=== PATIENT | female | born 1975 | race Caucasian/White ===

== ENCOUNTER → 2020-05-08 08:21 | Outpatient (BNVA) | payer OTHER, SELFPAY | PROVIDERS: PCP Internal Medicine; Referring Provider Internal Medicine; Visit Provider Internal Medicine Gastroenterology | DX: Z76.89 Persons encountering health services in other specified circumstances (principal) ==

== ENCOUNTER 2020-05-12 12:03 | Outpatient (REF) | payer OTHER, SELFPAY ==
--- NOTE | 2020-05-12 12:13 | US_ITS ---
EXAMINATION: LEFT UPPER EXTREMITY VENOUS ULTRASOUND CLINICAL INFORMATION: SWELLING. HISTORY OF DVT. COMPARISON: None TECHNIQUE: Doppler, color and grayscale evaluation of the veins of the left upper extremity FINDINGS: The left internal jugular, subclavian, axillary, brachial, basilic, and cephalic veins and radial and ulnar veins in the forearm are patent. The cephalic vein appears small. There is no evidence of DVT. US/US venous duplex UE LT IMPRESSION: No evidence of DVT.
== END 2020-05-12 12:04 | disposition home or self-care (01) ==
LOC: HO.HMGCX 12:03
PROVIDERS: PCP Internal Medicine; Visit Provider Hospitalist
DX: M79.89 Other specified soft tissue disorders (principal)
CPT/HCPCS: 93971

== ENCOUNTER 2020-06-13 07:53 | Outpatient (REF) | payer OTHER, SELFPAY | END 2020-06-13 07:54 | disposition home or self-care (01) | LOC: HO.MDS 07:53 | PROVIDERS: PCP Internal Medicine; Visit Provider Internal Medicine | DX: D50.9 Iron deficiency anemia, unspecified (principal) | CPT/HCPCS: 96365; 96366; J1200; J1750; Q0163 ==

== ENCOUNTER 2020-06-20 08:52 | Day surgery (SDC) | payer OTHER, SELFPAY ==
[2020-06-12 13:39] VITALS: BMI 47.4
--- NOTE | 2020-06-19 09:07 | HO.ANESPROP2 ---
Documented by User: Susana Gold 06/19/20 09:09 HPI - Anesthesia Eval Consult details Narrative: 45yo [facility] Past Medical History Medical History Anxiety Asthma Deep vein thrombosis (DVT) of left upper extremity Depression Eczema Elevated C-reactive protein (CRP) Family hx colonic polyps History of hysteroscopy Iron deficiency anemia Kidney stone Low vitamin D level Osteoarthritis of knees, bilateral Polyarthralgia Polycystic disease, ovaries Psoriasis Family History Family History Paternal Grandfather FH: esophageal cancer Najera esophagus Father Najera esophagus Mother Colon polyps Sister No problems noted. Surgical History Surgical History History of arthroscopy of right knee History of cholecystectomy Hx of tonsillectomy Social History Social History Household Members: Spouse and Children Housing: House Are you a primary progressive care unit registered nurse to a significant other at home: No Do you presently have visiting nurse or other home services: No Alcohol intake: current Alcohol intake frequency: holidays/special occasions only Alcohol type: wine Smoking Status: Never smoker Use of substances other than those prescribed or required for medical reasons: No Advance Directives: No Advance Directives Information Provided: Yes Advance Directives on File: No Recently lost weight without trying: No Meds Allergies Allergy/AdvReac Type Severity Reaction Status Date / Time apixaban Allergy Intermediate Rash Verified 06/12/20 13:35 promethazine [Phenergan] Allergy Intermediate Itching Verified 06/12/20 13:35 Home Medications Medication Instructions Recorded Confirmed Type albuterol 90 mcg INHALATION Q4-5H PRN 03/29/20 05/29/20 History sumatriptan succinate [Imitrex] 100 mg PO BID PRN 03/29/20 05/29/20 History Exam Exam Date and Time: June 19, 2020 0907 Height,Weight and Vital Signs: Height 5 ft 8 in Weight 141.521 kg Pertinent Lab Results Pertinent Lab Results: Laboratory Tests 02/04/20 05/29/20 08:42 08:23 WBC 5.4 Hgb 10.8 L Hct 37.3 Plt Count 277 Sodium 137 Potassium 3.4 Chloride 96 BUN 11 Creatinine 0.58 Assessment and Plan Assessment Anesthesia Assessment: Chart Reviewed Documented by User: Giselle Hoyos 06/20/20 11:52 PMFSH Past Medical History Medical History Anxiety Asthma Deep vein thrombosis (DVT) of left upper extremity Depression Eczema Elevated C-reactive protein (CRP) Family hx colonic polyps History of hysteroscopy Iron deficiency anemia Kidney stone Low vitamin D level Osteoarthritis of knees, bilateral Polyarthralgia Polycystic disease, ovaries Psoriasis Family History Family History Paternal Grandfather FH: esophageal cancer Najera esophagus Father Najera esophagus Mother Colon polyps Sister No problems noted. Surgical History Surgical History History of arthroscopy of right knee History of cholecystectomy Hx of tonsillectomy Social History Social History Household Members: Spouse and Children Housing: House Are you a primary progressive care unit registered nurse to a significant other at home: No Do you presently have visiting nurse or other home services: No Alcohol intake: current Alcohol intake frequency: holidays/special occasions only Alcohol type: wine Smoking Status: Never smoker Use of substances other than those prescribed or required for medical reasons: No Advance Directives: No Advance Directives Information Provided: Yes Advance Directives on File: No Recently lost weight without trying: No Meds Allergies Allergy/AdvReac Type Severity Reaction Status Date / Time apixaban Allergy Intermediate Rash Verified 06/12/20 13:35 promethazine [Phenergan] Allergy Intermediate Itching Verified 06/12/20 13:35 Home Medications Medication Instructions Recorded Confirmed Type albuterol 90 mcg INHALATION Q4-5H PRN 03/29/20 05/29/20 History sumatriptan succinate [Imitrex] 100 mg PO BID PRN 03/29/20 05/29/20 History Exam Airway Mallampati Class: II TM Dist: >3cm Neck ROM: Full Assessment and Plan Assessment Anesthesia Assessment: Anesthesia Plan Discussed and Chart Reviewed Final Anesthetic Review NPO: Yes ASA Class: III Final Preanesthetic Review: No Changes in Pt Med Stat, Meds/Allgs Chart Reviewed, Consent Obtained/Reviewed and Anes Risks/Benef Reviewed Patient Risk: Intermediate Procedure Risk: Low Assessment/Block/Sedation in SS: Assess/Block/Sedation-SS Anesthetic Plan Anesthetic Plan: MAC: Disposition: Standard PACU
[2020-06-20 10:27] VITALS: BP 138/83; PULSE 90; RESP 18; TEMP 36.5; O2SAT 96
[2020-06-20] MEDS: Lactated Ringers 1,000 ML 100 ML IVCONT (10:43)
--- NOTE | 2020-06-20 11:55 | PC.NURSE ---
per dr chavarria, no urine for hcg wanted prior to procedure due to iud in place.
--- NOTE | 2020-06-20 11:58 | MHC.SHP ---
Pre-Procedural Eval Section B Chief Complaint: iron def,screening Details of Present Illness: No clinical changes, Family hx polyps--Mother and father no menorrhagia Recent iron infusion--feels better. Relevant Family History (Specify if Yes): Yes Relevant Social History: None Present Medications: see Short Stay Collaborative assessment Medical History: Significant History (Asthma, iron deficiency anemia, psoriasis) History of Previous Operations: Relevant previous surgery/procedure and date(s) (cholecystectomy) Allergies: Allergies Allergy/AdvReac Type Severity Reaction Status Date / Time apixaban Allergy Intermediate Rash Verified 06/12/20 13:35 promethazine [Phenergan] Allergy Intermediate Itching Verified 06/12/20 13:35 Review of Systems Sugical H&P ROS: Negative: Constitution, Cardiovascular, Respiratory, Neurological, Psychiatric, Hem-Onc, Allergic/Immunologic, Gastrointestinal and Musculoskeletal Exam Surgical H&P Exam: Normal: HEENT, Normal: Heart, Normal: Lungs and Normal: Extremities and Significant Findings: Abdomen (obesity) Exam Comment: BMI-47 Plan Diagnosis/Plan: Unchanged I have reviewed the history and physical and performed a pertinent physical examination on my patient. No changes have occurred unless specified.yes
--- NOTE | 2020-06-20 12:06 | PM.HPGS ---
History of Present Illness History of Present Illness Date of Service: 06/20/20 Chief complaint: iron def,screening Narrative: Jennifer Delaney is a 45 [facility] Past Medical History Medical History Anxiety Asthma Deep vein thrombosis (DVT) of left upper extremity Depression Eczema Elevated C-reactive protein (CRP) Family hx colonic polyps History of hysteroscopy Iron deficiency anemia Kidney stone Low vitamin D level Osteoarthritis of knees, bilateral Polyarthralgia Polycystic disease, ovaries Psoriasis Family History Family History Paternal Grandfather FH: esophageal cancer Najera esophagus Father Najera esophagus Mother Colon polyps Sister No problems noted. Surgical History Surgical History History of arthroscopy of right knee History of cholecystectomy Hx of tonsillectomy Social History Social History Household Members: Spouse and Children Housing: House Are you a primary healthcare applications analyst to a significant other at home: No Do you presently have visiting nurse or other home services: No Alcohol intake: current Alcohol intake frequency: holidays/special occasions only Alcohol type: wine Smoking Status: Never smoker Use of substances other than those prescribed or required for medical reasons: No Advance Directives: No Advance Directives Information Provided: Yes Advance Directives on File: No Recently lost weight without trying: No Meds Allergies Allergy/AdvReac Type Severity Reaction Status Date / Time apixaban Allergy Intermediate Rash Verified 06/12/20 13:35 promethazine [Phenergan] Allergy Intermediate Itching Verified 06/12/20 13:35 Home Medications Medication Instructions Recorded Confirmed Type albuterol 90 mcg INHALATION Q4-5H PRN 03/29/20 05/29/20 History sumatriptan succinate [Imitrex] 100 mg PO BID PRN 03/29/20 05/29/20 History Physical Exam Vital Signs: Vital Signs: Last Vital Signs Temp 97.7 F 06/20/20 10:27 Pulse 90 06/20/20 10:27 Resp 18 06/20/20 10:27 BP 138/83 06/20/20 10:27 Pulse Ox 96 06/20/20 10:27 Body Mass Index 47.4
--- NOTE | 2020-06-20 12:13 | P.CONAN_ITS ---
[facility] Past Medical History Medical History Anxiety Asthma Deep vein thrombosis (DVT) of left upper extremity Depression Eczema Elevated C-reactive protein (CRP) Family hx colonic polyps History of hysteroscopy Iron deficiency anemia Kidney stone Low vitamin D level Osteoarthritis of knees, bilateral Polyarthralgia Polycystic disease, ovaries Psoriasis Family History Family History Paternal Grandfather FH: esophageal cancer Najera esophagus Father Najera esophagus Mother Colon polyps Sister No problems noted. Surgical History Surgical History History of arthroscopy of right knee History of cholecystectomy Hx of tonsillectomy Social History Social History Household Members: Spouse and Children Housing: House Are you a primary ambulatory care to a significant other at home: No Do you presently have visiting nurse or other home services: No Alcohol intake: current Alcohol intake frequency: holidays/special occasions only Alcohol type: wine Smoking Status: Never smoker Use of substances other than those prescribed or required for medical reasons: No Advance Directives: No Advance Directives Information Provided: Yes Advance Directives on File: No Recently lost weight without trying: No Meds Allergies Allergy/AdvReac Type Severity Reaction Status Date / Time apixaban Allergy Intermediate Rash Verified 06/12/20 13:35 promethazine [Phenergan] Allergy Intermediate Itching Verified 06/12/20 13:35 Home Medications Medication Instructions Recorded Confirmed Type albuterol 90 mcg INHALATION Q4-5H PRN 03/29/20 05/29/20 History sumatriptan succinate [Imitrex] 100 mg PO BID PRN 03/29/20 05/29/20 History Exam Exam Date and Time: June 20, 2020 1213 Height,Weight and Vital Signs: Height 5 ft 8 in Weight 141.521 kg Last Vital Signs Temp 97.7 F 06/20/20 10:27 Pulse 90 06/20/20 10:27 Resp 18 06/20/20 10:27 BP 138/83 06/20/20 10:27 Pulse Ox 96 06/20/20 10:27 Airway Mallampati Class: II TM Dist: >3cm Neck ROM: Full Assessment and Plan Assessment Anesthesia Assessment: Anesthesia Plan Discussed and Chart Reviewed Final Anesthetic Review NPO: Yes ASA Class: III Final Preanesthetic Review: No Changes in Pt Med Stat, Meds/Allgs Chart Reviewed, Consent Obtained/Reviewed and Anes Risks/Benef Reviewed Patient Risk: Intermediate Procedure Risk: Low Assessment/Block/Sedation in SS: Assess/Block/Sedation-SS Anesthetic Plan Anesthetic Plan: MAC:
[2020-06-20 12:55] VITALS: BP 121/67; PULSE 79; RESP 16; TEMP 36.7; O2SAT 95
--- NOTE | 2020-06-20 12:56 | PCN2_ITS ---
Brief Operative Note Date of procedure: 06/20/20 Pre-op diagnosis: Iron deficiency anemia, colon cancer screening (Family hx of polyps) Post-op diagnosis: other (EGD: Small HH. Erosive antral Gastrtitis, [place]--neg--redundant) Procedure: EGD w/ BX; colo no intervention Anesthesia: MAC (Isaiah Fischer MD) Surgeon: Mikki Tello Estimated blood loss (mL): 0 Pathology: other (Duodenal, random gastric, colon--no spec.) Condition: stable Disposition: PACU
[2020-06-20 13:08] VITALS: BP 135/78; PULSE 73; RESP 16; TEMP 36.7; O2SAT 97
--- NOTE | 2020-06-20 13:43 | HO.POSTANES ---
Post Anesthesia Evaluation Post Anesthesia Evaluation Vital Signs: Vital Signs Temp Pulse Resp BP Pulse Ox 06/20/20 13:08 98.0 F 73 16 135/78 97 06/20/20 12:55 98.0 F 79 16 121/67 95 06/20/20 10:27 97.7 F 90 18 138/83 96 Anesthesia: Monitored Mental Status: Awake Pain Control: Satisfactory Nausea/Vomiting: None Hydration: Adequate Anesthesia-Related Issues: No Anes. Related Issues
--- NOTE | 2020-06-20 14:42 | OP_ITS ---
SURGEON: Mikki Tello MD PREOPERATIVE DIAGNOSIS: POSTOPERATIVE DIAGNOSIS: PROCEDURE PERFORMED: EGD with biopsy, colonoscopy. ESTIMATED BLOOD LOSS: Minimal, less than 5 mL. COMPLICATIONS: No complications. ANESTHESIA: Monitored. ANESTHESIOLOGIST: Dr. Hoyos ASSISTANTS: No talent assistant. SPECIMENS: Specimens removed; EGD, duodenal, gastric. Colonoscopy, no specimens. PREOPERATIVE DIAGNOSES: The patient is a 45-year-old female, who was referred by her primary and Hematology due to significant iron-deficiency anemia. She has had no significant menstrual bleeding since placement of IUD 10 years ago. Recently, she has been given an iron infusion. She says she feels more energy since that time. She does also give a history in her on both sides of her family of colonic polyps. POSTOPERATIVE DIAGNOSES: EGD; hiatal hernia, small antral gastritis with some associated erosions. Colonoscopy; clear to the level of the cecum. [place] UNDERWRITER: Dr. Tello. CONDITION: Postprocedure, stable. FINDINGS: Video endoscope was introduced without difficulty. It was navigated into posterior pharynx and into the esophagus. Esophageal mucosa was normal. GE junction was clear and distinct. Distal to this, was a small hiatal hernia. On entering the stomach, the fundus and body appeared normal. There was still a radiating linear folds in the antrum from the pylorus with some associated erosive change. Duodenal bulb and duodenum appeared endoscopically normal although there was a question of foreshortening of the villi. Duodenal biopsies were obtained. Gastric biopsies were obtained. COLONOSCOPY FINDINGS: Digital rectal exam revealed no specific lesion. Video colonoscope was introduced without difficulty. It was navigated into the rectosigmoid area. There was a lot of retained fluid from the prep with a very blue chartreuse type coloration making some of the landmark distinctions difficult. Scope slowly advanced through descending, transverse, ascending colon into the cecum. Appendiceal orifice was seen. Ileocecal valve was seen. Distention despite the use of air insufflation was somewhat marginal in different areas. Slow rotational views. Multiple areas were flushed. No polyps were identified. Anorectal verge was clear. PLAN: I would do FIT testing in this patient in 3 to 4 months. If this is negative, consider colon cancer screening with a 2-day prep in 3 years due to significant family history and some variability of the prep that we had encountered. She is to followup by Televisit in next 2-4 weeks. (May have already been scheduled.) GRAFT OR IMPLANTS: No grafts or implants. MD GAL Phipps/AZAEL / [id number] MTDD
== END 2020-06-20 13:36 | disposition home or self-care (01) ==
PROVIDERS: PCP Internal Medicine; Visit Provider Internal Medicine Gastroenterology
PROC: (CPT 45378; principal; 2020-06-20 11:20)
DX: D50.9 Iron deficiency anemia, unspecified (principal); Z83.71 Family history of colonic polyps; K29.50 Unspecified chronic gastritis without bleeding; K44.9 Diaphragmatic hernia without obstruction or gangrene; K31.89 Other diseases of stomach and duodenum; J45.909 Unspecified asthma, uncomplicated; M17.0 Bilateral primary osteoarthritis of knee; Z88.8 Allergy status to other drugs, medicaments and biological substances; Z90.49 Acquired absence of other specified parts of digestive tract; Z79.899 Other long term (current) drug therapy
CPT/HCPCS: 45378; 43239; 88305; 88342; J2405; J3010

== ENCOUNTER 2021-02-22 07:57 | Outpatient (REF) | payer OTHER, SELFPAY ==
[2021-02-22 09:35] LABS: Alanine Aminotransferase 14 U/L (0-31); Albumin Level 3.7 g/dL (3.5-5.0); Alkaline Phosphatase 93 U/L (39-117); Anion Gap 13 (12-20); Aspartate Amino Transferase 11 U/L (5-31); Bilirubin Total 0.3 mg/dL (0.0-1.0); Blood Urea Nitrogen 9 mg/dL (9-16); Calcium 8.7 mg/dL (8.4-10.2); Carbon Dioxide 30 mmol/L (22-29); Chloride 103 mmol/L (96-108); Estimated Glomerular Filt Rate > 60; Glucose Random 159 mg/dL (60-115); Potassium 3.8 mmol/L (3.3-5.1); Sodium 142 mmol/L (135-145); Total Protein 6.3 g/dL (6.5-8.0)
== END 2021-02-22 07:58 | disposition home or self-care (01) ==
LOC: HO.LAB 07:57
PROVIDERS: PCP Internal Medicine; Referring Provider Internal Medicine; Visit Provider Nurse Practitioner Family
DX: M79.7 Fibromyalgia (principal); R79.82 Elevated C-reactive protein (CRP); D50.9 Iron deficiency anemia, unspecified
CPT/HCPCS: 36415; 80053

== ENCOUNTER 2021-07-24 11:24 | Outpatient (REF) | payer OTHER, SELFPAY ==
[2021-07-24 11:54] LABS: Binax Internal Control QC Valid; Binax Now Covid-19 Ag Negative (Negative); Binax Performed by: HO.BONILM
== END 2021-07-24 11:25 | disposition home or self-care (01) ==
LOC: HO.HMGCLDS 11:24
PROVIDERS: PCP Internal Medicine; Visit Provider Physician Assistant
DX: Z20.822 Contact with and (suspected) exposure to COVID-19 (principal)
CPT/HCPCS: 0241U; U0003; U0005

== ENCOUNTER 2022-03-19 07:19 | Outpatient (REF) | payer OTHER, SELFPAY ==
[2022-03-19 11:22] LABS: Appearance Urine Cloudy; Color Urine Yellow; Glucose Urine UA Negative (Negative); Leukocyte Esterase Urine Negative (Negative); Nitrite Urine Negative (Negative); PH 7.5 (5.0-9.0); Specific Gravity - Urine 1.025 (1.005-1.025); Urine Blood Negative (Negative); Urine Ketones Negative (Negative); Urine Protein Negative (Neg-Trace)
[2022-03-19 11:27] LABS: Bacteria Urine None Seen (None Seen); Hyaline Casts Urine 0-2 /LPF (0-2); Squamous Epithelial Cell Urine 0-2 /HPF (0-2); WBC Urine 0-5 /HPF (0-5)
[2022-03-19 11:40] LABS: Hematocrit 38.1 % (37.0-47.0); Hemoglobin 11.4 g/dl (12.0-16.0); Mean Corpuscular HGB Conc 29.9 g/dl (31.0-35.0); Mean Corpuscular Hemoglobin 24.1 pg (27.0-33.0); Mean Corpuscular Volume 80.4 fL (80.0-98.0); Mean Platelet Volume 9.6 fL (9.4-12.3); Platelet Count 244 X10*3/uL (160-400); Red Blood Count 4.74 X10*6/uL (4.20-5.50); Red Cell Distribution Width 15.2 % (11.0-16.0)
[2022-03-19 12:24] LABS: Alanine Aminotransferase 15 U/L (0-31); Albumin Level 3.7 g/dL (3.5-5.0); Alkaline Phosphatase 86 U/L (39-117); Anion Gap 18 (12-20); Aspartate Amino Transferase 14 U/L (5-31); Bilirubin Total 0.6 mg/dL (0.0-1.0); Blood Urea Nitrogen 10 mg/dL (9-16); Calcium 8.5 mg/dL (8.4-10.2); Carbon Dioxide 29 mmol/L (22-29); Chloride 97 mmol/L (96-108); Cholesterol 215 mg/dL; Estimated Glomerular Filt Rate > 60; Glucose Fasting 133 mg/dL (60-99); HDL Cholesterol 52 mg/dL; Iron 40 mcg/dL (30-160); LDL Cholesterol Calculated 131 mg/dl; Percent Iron Saturation 12 % (15-50); Potassium 3.5 mmol/L (3.3-5.1); Sodium 140 mmol/L (135-145); TSH reflex Free T4 1.24 uIU/mL (0.32-4.0); Total Iron Binding Capacity 327 mcg/dL (228-428); Total Protein 6.5 g/dL (6.5-8.0); Triglycerides 161 mg/dL; Unsaturated Iron Binding 287 ug/dL
== END 2022-03-19 07:20 | disposition home or self-care (01) ==
LOC: HO.HMGCLDS 07:19
PROVIDERS: PCP Internal Medicine; Visit Provider Internal Medicine
DX: Z00.00 Encounter for general adult medical examination without abnormal findings (principal); D50.9 Iron deficiency anemia, unspecified
CPT/HCPCS: 36415; 80053; 80061; 81001; 82306; 83540; 84443; 85027

== ENCOUNTER 2022-04-18 14:01 | Outpatient (REF) | payer OTHER, SELFPAY ==
--- NOTE | ~2022-04-18 | XR_ITS ---
EXAMINATION: XR SINUSES CLINICAL INFORMATION: Chronic sinusitis COMPARISON: None TECHNIQUE: 3 views of the sinuses were obtained. FINDINGS: Paranasal sinuses appear clear without soft tissue opacification or air-fluid level. No fracture or dislocation. Bony structures are normal. XR/XR sinus min 3V IMPRESSION: Clear paranasal sinuses.
== END 2022-04-18 14:02 | disposition home or self-care (01) ==
LOC: HO.HMGCX 14:01
PROVIDERS: PCP Internal Medicine; Visit Provider Internal Medicine
DX: J32.9 Chronic sinusitis, unspecified (principal)
CPT/HCPCS: 70220

== ENCOUNTER 2023-01-02 10:08 | Outpatient (AMB) | payer OTHER, SELFPAY ==
[2023-01-02 10:13] VITALS: BP 126/80; PULSE 82; O2SAT 97; BMI 48.0
--- NOTE | 2023-01-02 10:13 | MHC.PC.OV ---
Vital Signs 01/02/23 10:13 Height 5 ft 8 in Weight 316 lb BMI 48.0 BP 126/80 Blood Pressure Location Lt brachial Position Sitting Pulse 82 Pulse Source Pulse Oximeter Pulse Oximetry (%) 97 Oxygen Delivery Method Room Air Intake Visit Reasons: Follow up from physical Intake Note: Pt is here today for a follow up visit. Allergies amoxicillin Allergy (Intermediate, Verified 01/02/23 10:15) Rash apixaban Allergy (Intermediate, Verified 01/02/23 10:15) Rash promethazine [Phenergan] Allergy (Intermediate, Verified 01/02/23 10:15) Itching Tobacco use date assessed: 01/02/23 Dental Screening Dental Screen Date: 01/02/23 Did you have a dental visit in the last 12 months?: Yes Did you have a dental problem in the last 6 months where you did not have access to dental care?: No Was dental information given to patient?: Patient has dentist HPI Follow up from physical HPI Details Pt presents for f/u. For recurrent nephrolithiasis and will have a surgery next week by Dr. Ashford. Pt f/u with neurology for migraine AQUINO botox inj. PFSH Medical History (Updated 01/02/23 @ 10:56 by Haley El MD) Annual physical exam Anxiety Asthma Deep vein thrombosis (DVT) of left upper extremity Depression Eczema Elevated C-reactive protein (CRP) Family hx colonic polyps Iron deficiency anemia Kidney stone Low vitamin D level Migraine Osteoarthritis of knees, bilateral Polyarthralgia Polycystic disease, ovaries Psoriasis Surgical History History of arthroscopy of right knee History of cholecystectomy History of hysteroscopy Hx of tonsillectomy Family History Paternal Grandfather FH: esophageal cancer Najera esophagus Father Najera esophagus Mother Colon polyps Sister No problems noted. Social History Household Members: Spouse and Children Housing: House Are you a primary out of school hours care worker to a significant other at home: No Do you presently have visiting nurse or other home services: No Alcohol intake: current Alcohol intake frequency: holidays/special occasions only Alcohol type: wine Patient Tobacco Use Status: Never used Tobacco e-Cigarette/Vaping Use: Never Used Substance Use Type: Marijuana Current occupational status: employed Cognitive needs: No Hearing needs: No Vision needs: No Questionnaire PHQ-9 Over the last 2 weeks, how often have you been bothered by any of the following problems? 1. Little interest or pleasure in doing things: several days 2. Feeling down, depressed, or hopeless: several days 3. Trouble falling or staying asleep, or sleeping too much: more than half the days 4. Feeling tired or having little energy: several days 5. Poor appetite or overeating: several days 6. Feeling bad about yourself - or that you are a failure or have let yourself or your family down: not at all 7. Trouble concentrating on things, such as reading the newspaper or watching television: not at all 8. Moving or speaking so slowly that other people could have noticed. Or the opposite - being so fidgety or restless that you have been moving around a lot more than usual: not at all 9. Thoughts that you would be better off or of hurting yourself in some way: not at all Total score: 6 Depression Screening Interpretation: Negative Source: Developed by Drs. Livan Lima, Monica Castellano, Edward Draper and colleagues, with an educational gilbert from [employer]. Thrive Questionnaire Date Thrive assessed: 01/02/23 I am a: Patient What is your living situation today?: I have a steady place to live Within the past 12 months, did the food you bought not last and you didn't have the money to get more?: Never true Within the past 12 months, did you worry whether your food would run out before you got money to buy more?: Never true Do you have trouble paying for medicines?: No Do you have trouble getting transportation to medical appointments?: No Do you have trouble paying your heating and electricity bill?: No Do you have trouble taking care of your child, family member or friend?: No Do you have trouble with day-to-day activities such as bathing, preparing meals, shopping, managing finances, etc.?: No Are you currently unemployed and looking for a job?: No Are you interested in more education?: No Please select the resources that you would like help with: None AUDIT C Alcohol Use Questionnaire (AUDIT-C) 1. How often do you have a drink containing alcohol?: Monthly or less 2. How many drinks containing alcohol do you have on a typical day when you are drinking?: 1 or 2 3. How often do you have six or more drinks on one occasion?: Never Total Score: 1 SHELBIE-7 AMB Questionnaire SHELBIE-7 Date SHELBIE - 7 assessed: 03/27/22 Feeling nervous, anxious, or on edge: 2 = More than half the days Not being able to stop or control worryin = Several days Worrying too much about different things: 1 = Several days Trouble relaxin = Several days Being so restless that it is hard to sit still: 1 = Several days Becoming easily annoyed or irritable: 1 = Several days Feeling afraid as if something awful might happen: 1 = Several days Total SHELBIE-7 score (0-4 normal; 5-9 mild; 10-14 moderate; 15-21 severe): 8 Source: Developed by Drs. Livan Lima, Monica Castellano, Edward Draper and colleagues, with an educational gilbert from [employer]. Review of Systems Const All systems reviewed & are unremarkable except as noted in HPI and below Reports no additional complaints Eyes Reports no additional complaints ENT Reports no additional complaints Card Reports no additional complaints Resp Reports no additional complaints GI Reports no additional complaints Physical exam (Primary Care) Vital Signs: Last Vital Signs Pulse 82 01/02/23 10:13 BP 126/80 01/02/23 10:13 Pulse Ox 97 01/02/23 10:13 Oxygen Delivery Method Room Air 01/02/23 10:13 BMI result Body Mass Index 48.0 Tobacco/Smoking Status: Tobacco use Status Tobacco use date assessed 01/02/23 01/02/23 10:19 Patient Tobacco Use Status Never used Tobacco 01/02/23 10:19 e-Cigarette/Vaping Use Never Used 01/02/23 10:19 PHQ-9: PHQ-9 Score PHQ-9: Total score 6 01/02/23 10:19 Depression Screening Interpretation: Negative Thrive Assessment: Date of Thrive Assessment Date Thrive assessed 01/02/23 01/02/23 10:19 Const General: no acute distress HENMT Ears: hearing grossly normal bilaterally Face and sinus: Yes normal facial exam Neck Neck: Yes no lymphadenopathy and Yes supple Resp Effort & Inspection: normal respiratory effort Auscultation: clear to auscultation bilaterally Cardio Rhythm: regular rhythm Heart sounds: S1 normal heart sound present and S2 normal heart sound present GI Inspection: Yes normal to inspection Palpation (GI): Soft to palpation Percussion: Yes normal to percussion Assessment and Plan Assessment & Plan (1) Vitamin D deficiency: Code(s): E55.9 - Vitamin D deficiency, unspecified Plan: cont vit D (2) Hyperglycemia: Code(s): R73.9 - Hyperglycemia, unspecified Plan: check A1C, cont ADA diet (3) Annual physical exam: Code(s): Z00.00 - Encounter for general adult medical examination without abnormal findings Plan: well balanced diet, regular exercise (4) Low vitamin D level: Code(s): R79.89 - Other specified abnormal findings of blood chemistry (5) Kidney stone: Comment: recurrent R kidney f/u PVU Code(s): N20.0 - Calculus of kidney Orders: Orders Comprehensive [place]. Panel Fast Today E55.9 - Vitamin D deficiency, unspecified, R73.9 - Hyperglycemia, unspecified, R79.89 - Other specified abnormal findings of blood chemistry, Z00.00 - Encounter for general adult medical examination without abnormal findings Hemoglobin A1c Today E55.9 - Vitamin D deficiency, unspecified, R73.9 - Hyperglycemia, unspecified, R79.89 - Other specified abnormal findings of blood chemistry, Z00.00 - Encounter for general adult medical examination without abnormal findings Lipid Panel Today E55.9 - Vitamin D deficiency, unspecified, R73.9 - Hyperglycemia, unspecified, R79.89 - Other specified abnormal findings of blood chemistry, Z00.00 - Encounter for general adult medical examination without abnormal findings PTHI Today E55.9 - Vitamin D deficiency, unspecified, R73.9 - Hyperglycemia, unspecified, R79.89 - Other specified abnormal findings of blood chemistry, Z00.00 - Encounter for general adult medical examination without abnormal findings Microalbumin, Random (w Creat) Today E55.9 - Vitamin D deficiency, unspecified, R73.9 - Hyperglycemia, unspecified, R79.89 - Other specified abnormal findings of blood chemistry, Z00.00 - Encounter for general adult medical examination without abnormal findings Complete Blood Count Auto Diff Today E55.9 - Vitamin D deficiency, unspecified, R73.9 - Hyperglycemia, unspecified, R79.89 - Other specified abnormal findings of blood chemistry, Z00.00 - Encounter for general adult medical examination without abnormal findings Vitamin D 25-OH Total Today R79.89 - Other specified abnormal findings of blood chemistry Coding Level of Care Code Est Pt Level 4 (62188) Diagnoses Vitamin D deficiency E55.9 Hyperglycemia R73.9 Annual physical exam Z00.00 Low vitamin D level R79.89 Kidney stone N20.0
== END 2023-01-02 10:47 | disposition home or self-care (01) ==
PROVIDERS: PCP Internal Medicine; Visit Provider Internal Medicine
DX: E55.9 Vitamin D deficiency, unspecified (principal); R73.9 Hyperglycemia, unspecified; N20.0 Calculus of kidney
CPT/HCPCS: 99214

== ENCOUNTER 2023-07-21 12:21 | Outpatient (REF) | payer OTHER, SELFPAY | END 2023-07-21 12:22 | disposition home or self-care (01) | LOC: HO.MAMMO 12:21 | PROVIDERS: PCP Internal Medicine; Visit Provider Internal Medicine | DX: Z12.31 Encounter for screening mammogram for malignant neoplasm of breast (principal) | CPT/HCPCS: 77063; 77067 ==

== ENCOUNTER → 2023-07-21 12:30 | Outpatient (BNV) | payer OTHER, SELFPAY | PROVIDERS: PCP Internal Medicine; Visit Provider Radiology Diagnostic Radiology | DX: Z12.31 Encounter for screening mammogram for malignant neoplasm of breast (principal) | CPT/HCPCS: 77063; 77067 ==

== ENCOUNTER 2023-10-02 08:07 | Outpatient (REF) | payer OTHER, SELFPAY ==
[2023-10-02 10:20] LABS: MANUAL DIFF FLAG NO
[2023-10-02 10:35] LABS: Basophils Percent Auto 0.3 % (0-2); Eosinophils Percent Auto 0.6 % (0-4); Hematocrit 38.8 % (37.0-47.0); Hemoglobin 11.4 g/dl (12.0-16.0); Imm Gran Abs Auto 0.02 X10*3/uL (0.00-0.03); Imm Gran Pct Auto 0.3 % (0.0-0.4); Lymphocytes Absolute Auto 1.3 X10*3/uL (1.2-4.9); Lymphocytes Percent Auto 18.6 % (20-40); Mean Corpuscular HGB Conc 29.4 g/dl (31.0-35.0); Mean Corpuscular Hemoglobin 22.7 pg (27.0-33.0); Mean Corpuscular Volume 77.1 fL (80.0-98.0); Mean Platelet Volume 9.6 fL (9.4-12.3); Monocytes Absolute Auto 0.3 X10*3/uL (0.1-1.2); Monocytes Percent Auto 4.3 % (2-11); Neutrophils Absolute Auto 5.3 x10*3/uL (2.0-8.3); Neutrophils Percent Auto 75.9 % (45-73); Platelet Count 278 X10*3/uL (160-400); Red Blood Count 5.03 X10*6/uL (4.20-5.50); Red Cell Distribution Width 16.2 % (11.0-16.0); White Blood Count 6.9 X10*3/uL (4.8-10.8)
[2023-10-02 10:52] LABS: Estimated Average Glucose 151 mg/dL; Hemoglobin A1c % 6.9 % (<6.0)
[2023-10-02 11:32] LABS: Creatinine Urine 128.83 mg/dL; Microalbum/Creatinine Ratio Ur 7.7 ug/mg cr (<30)
[2023-10-02 11:47] LABS: Alanine Aminotransferase 18 U/L (0-31); Albumin Level 3.8 g/dL (3.5-5.0); Alkaline Phosphatase 81 U/L (39-117); Anion Gap 11 (12-20); Aspartate Amino Transferase 14 U/L (5-31); Bilirubin Total 0.5 mg/dL (0.0-1.0); Blood Urea Nitrogen 9 mg/dL (9-16); Calcium 9.3 mg/dL (8.4-10.2); Carbon Dioxide 32 mmol/L (22-29); Chloride 99 mmol/L (96-108); Cholesterol 193 mg/dL (<200); Estimated Glomerular Filt Rate > 60; Glucose Fasting 122 mg/dL (60-99); HDL Cholesterol 52 mg/dL (>40); LDL Cholesterol Calculated 111 mg/dL (<100); Potassium 3.6 mmol/L (3.3-5.1); Sodium 138 mmol/L (135-145); Total Protein 7.7 g/dL (6.5-8.0); Triglycerides 154 mg/dL (<150)
[2023-10-02 11:51] LABS: Vitamin D 25-OH Total 20.8 ng/mL (>30)
== END 2023-10-02 08:08 | disposition home or self-care (01) ==
LOC: HO.HMGCLDS 08:07
PROVIDERS: PCP Internal Medicine; Visit Provider Internal Medicine
DX: Z00.00 Encounter for general adult medical examination without abnormal findings (principal); E55.9 Vitamin D deficiency, unspecified; R73.9 Hyperglycemia, unspecified
CPT/HCPCS: 36415; 80053; 80061; 82043; 82306; 82570; 83036; 85025

== ENCOUNTER 2023-10-08 13:26 | Outpatient (AMB) | payer OTHER, SELFPAY ==
[2023-10-08 13:35] VITALS: BP 110/66; PULSE 82; O2SAT 97; BMI 48.5
--- NOTE | 2023-10-08 13:35 | MHC.PC.OV ---
Vital Signs 10/08/23 13:35 Height 5 ft 8 in Weight 319 lb BMI 48.5 BP 110/66 Blood Pressure Location Rt brachial Position Sitting Pulse 82 Pulse Source Pulse Oximeter Pulse Oximetry (%) 97 Oxygen Delivery Method Room Air Intake Visit Reasons: Annual PE Intake Note: Pt is here today for her PE Allergies amoxicillin Allergy (Intermediate, Verified 10/08/23 13:37) Rash apixaban Allergy (Intermediate, Verified 10/08/23 13:37) Rash promethazine [Phenergan] Allergy (Intermediate, Verified 10/08/23 13:37) Itching Medication List - Last Reconciled 10/08/23 by Haley El MD albuterol sulfate 0.63 mg (3 mL) inhalation QID PRN albuterol sulfate 90 mcg/actuation 2 puffs inhalation Q6H PRN apremilast (Otezla) 30 mg PO BID cholecalciferol (vitamin D3) 50 mcg PO DAILY 30 days hydrochlorothiazide 50 mg PO DAILY metformin 1,000 mg PO DAILY nebulizers As directed rizatriptan take 1 tablet at onset of headache; if no relief, may repeat 1 tablet after at least 2 hrs PO sertraline 100 mg PO DAILY Tobacco use date assessed: 10/08/23 Dental Screening Dental Screen Date: 10/08/23 Did you have a dental visit in the last 12 months?: Yes Did you have a dental problem in the last 6 months where you did not have access to dental care?: Yes Was dental information given to patient?: Patient has dentist HPI Annual PE HPI Details Pt presents for PE. [facility] Medical History (Updated 10/08/23 @ 15:26 by Haley El MD) Annual physical exam Migraine Low vitamin D level Family hx colonic polyps Elevated C-reactive protein (CRP) Iron deficiency anemia Anxiety Depression Eczema Psoriasis Asthma Kidney stone Polycystic disease, ovaries Osteoarthritis of knees, bilateral Polyarthralgia Deep vein thrombosis (DVT) of left upper extremity Surgical History Hx of tonsillectomy History of cholecystectomy History of hysteroscopy History of arthroscopy of right knee Family History Paternal Grandfather FH: esophageal cancer Najera esophagus Father Najera esophagus Mother Colon polyps Sister No problems noted. Social History Household Members: Spouse and Children Housing: House Are you a primary child care sitter to a significant other at home: No Do you presently have visiting nurse or other home services: No Alcohol intake: current Alcohol intake frequency: holidays/special occasions only Alcohol type: wine Patient Tobacco Use Status: Never used Tobacco e-Cigarette/Vaping Use: Never Used Substance Use Type: Marijuana Current occupational status: employed Cognitive needs: No Hearing needs: No Vision needs: No Questionnaire PHQ-9 Over the last 2 weeks, how often have you been bothered by any of the following problems? 1. Little interest or pleasure in doing things: not at all 2. Feeling down, depressed, or hopeless: not at all 3. Trouble falling or staying asleep, or sleeping too much: not at all 4. Feeling tired or having little energy: not at all 5. Poor appetite or overeating: not at all 6. Feeling bad about yourself - or that you are a failure or have let yourself or your family down: not at all 7. Trouble concentrating on things, such as reading the newspaper or watching television: not at all 8. Moving or speaking so slowly that other people could have noticed. Or the opposite - being so fidgety or restless that you have been moving around a lot more than usual: not at all 9. Thoughts that you would be better off or of hurting yourself in some way: not at all Total score: 0 Depression Screening Interpretation: Negative Depression Screening Done: Yes [id number] - PHQ-9 Billing: Yes Source: Developed by Drs. Livan Lima, Monica Castellano, Edward Draper and colleagues, with an educational gilbert from [facility]. Thrive Questionnaire Date Thrive assessed: 10/08/23 I am a: Patient What is your living situation today?: I have a steady place to live Within the past 12 months, did the food you bought not last and you didn't have the money to get more?: Never true Within the past 12 months, did you worry whether your food would run out before you got money to buy more?: Never true Do you have trouble paying for medicines?: No Do you have trouble getting transportation to medical appointments?: No Do you have trouble paying your heating and electricity bill?: No Do you have trouble taking care of your child, family member or friend?: No Do you have trouble with day-to-day activities such as bathing, preparing meals, shopping, managing finances, etc.?: No Are you currently unemployed and looking for a job?: No Are you interested in more education?: No THRIVE Score: 0 AUDIT C Alcohol Use Questionnaire (AUDIT-C) 1. How often do you have a drink containing alcohol?: Monthly or less 2. How many drinks containing alcohol do you have on a typical day when you are drinking?: 1 or 2 3. How often do you have six or more drinks on one occasion?: Never Total Score: 1 SHELBIE-7 AMB Questionnaire SHELBIE-7 Date SHELBIE - 7 assessed: 10/08/23 Feeling nervous, anxious, or on edge: 0 = Not at all Not being able to stop or control worryin = Not at all Worrying too much about different things: 0 = Not at all Trouble relaxin = Not at all Being so restless that it is hard to sit still: 0 = Not at all Becoming easily annoyed or irritable: 0 = Not at all Feeling afraid as if something awful might happen: 0 = Not at all Total SHELBIE-7 score (0-4 normal; 5-9 mild; 10-14 moderate; 15-21 severe): 0 Source: Developed by Drs. Livan Lima, Monica Castellano, Edward Draper and colleagues, with an educational gilbert from [facility]. Review of Systems Const All systems reviewed & are unremarkable except as noted in HPI and below Eyes Reports no additional complaints ENT Reports no additional complaints Card Reports no additional complaints Resp Reports no additional complaints GI Reports no additional complaints Reports no additional complaints Musc Reports no additional complaints Physical exam (Primary Care) Vital Signs: Last Vital Signs Pulse 82 10/08/23 13:35 BP 110/66 10/08/23 13:35 Pulse Ox 97 10/08/23 13:35 Oxygen Delivery Method Room Air 10/08/23 13:35 BMI result Body Mass Index 48.5 Tobacco/Smoking Status: Tobacco use Status Tobacco use date assessed 10/08/23 10/08/23 13:39 Patient Tobacco Use Status Never used Tobacco 10/08/23 13:36 e-Cigarette/Vaping Use Never Used 10/08/23 13:36 PHQ-9: PHQ-9 Score PHQ-9: Total score 0 10/08/23 13:43 Depression Screening Interpretation: Negative Thrive Assessment: Date of Thrive Assessment Date Thrive assessed 10/08/23 10/08/23 13:43 Const General: no acute distress HENMT Ears: hearing grossly normal bilaterally Eyes General: appearance normal, both eyes and all related structures Neck Neck: Yes no lymphadenopathy and Yes supple Resp Effort & Inspection: normal respiratory effort Auscultation: clear to auscultation bilaterally Cardio Rhythm: regular rhythm Heart sounds: S1 normal heart sound present and S2 normal heart sound present GI Inspection: Yes normal to inspection Palpation (GI): Soft to palpation Percussion: Yes normal to percussion Auscultation: normal bowel sounds Assessment and Plan Assessment & Plan (1) Hx of colonoscopy: Comment: 2020 negative, repeat 2024, FHx colon polyps Code(s): Z98.890 - Other specified postprocedural states (2) Annual physical exam: Code(s): Z00.00 - Encounter for general adult medical examination without abnormal findings Plan: Well-balanced diet regular physical activity weight loss discussed with the patient. 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 Follow-up in 3 months with a fasting labs before (4) Vitamin D deficiency: Code(s): E55.9 - Vitamin D deficiency, unspecified Plan: Increase vitamin-D supplement to 3000 IU (5) Kidney stone: Comment: recurrent R kidney f/u PVU, S/P lithotripsy 01/05 for left kidney nephrolithiasis Code(s): N20.0 - Calculus of kidney Plan: Follow-up with urology Orders: Orders Microalbumin, Random (w Creat) 3 Months E11.9 - Type 2 diabetes mellitus without complications, E55.9 - Vitamin D deficiency, unspecified, R73.9 - Hyperglycemia, unspecified, Z00.00 - Encounter for general adult medical examination without abnormal findings Vitamin D 25-OH Total 3 Months E11.9 - Type 2 diabetes mellitus without complications, E55.9 - Vitamin D deficiency, unspecified, R73.9 - Hyperglycemia, unspecified, Z00.00 - Encounter for general adult medical examination without abnormal findings Hemoglobin A1c 3 Months E11.9 - Type 2 diabetes mellitus without complications, E55.9 - Vitamin D deficiency, unspecified, R73.9 - Hyperglycemia, unspecified, Z00.00 - Encounter for general adult medical examination without abnormal findings Lipid Panel 3 Months E11.9 - Type 2 diabetes mellitus without complications, E55.9 - Vitamin D deficiency, unspecified, R73.9 - Hyperglycemia, unspecified, Z00.00 - Encounter for general adult medical examination without abnormal findings Comprehensive [place]. Panel Fast 3 Months E11.9 - Type 2 diabetes mellitus without complications, E55.9 - Vitamin D deficiency, unspecified, R73.9 - Hyperglycemia, unspecified, Z00.00 - Encounter for general adult medical examination without abnormal findings Referrals Nurse Navigator Referral E11.9 - Type 2 diabetes mellitus without complications Medications: New Mounjaro (tirzepatide) 2.5 mg (0.5 mL) subcut QWEEK 6 mL 0RF NS blood sugar diagnostic (OneTouch Ultra Test strips) 1 a day 100 ea 3RF OneTouch Ultra2 Meter (blood-glucose meter) As directed 1 ea 0RF NS cholecalciferol (vitamin D3) 75 mcg PO DAILY 90 tabs 3RF Coding Level of Care Code Est Pt Prev Care 40-64y(54759) Diagnoses Hx of colonoscopy Z98.890 Annual physical exam Z00.00 Hyperglycemia R73.9 Vitamin D deficiency E55.9 Kidney stone N20.0
== END 2023-10-08 14:56 | disposition home or self-care (01) ==
PROVIDERS: PCP Internal Medicine; Visit Provider Internal Medicine
DX: Z98.890 Other specified postprocedural states (principal); Z00.00 Encounter for general adult medical examination without abnormal findings; R73.9 Hyperglycemia, unspecified; E55.9 Vitamin D deficiency, unspecified; N20.0 Calculus of kidney
CPT/HCPCS: 99396

== ENCOUNTER 2024-01-22 07:51 | Outpatient (REF) | payer OTHER, SELFPAY ==
[2024-01-22 10:44] LABS: Estimated Average Glucose 131 mg/dL; Hemoglobin A1c % 6.2 % (<6.0)
[2024-01-22 10:54] LABS: Alanine Aminotransferase 14 U/L (0-31); Albumin Level 3.8 g/dL (3.5-5.0); Alkaline Phosphatase 82 U/L (39-117); Anion Gap 13 (12-20); Aspartate Amino Transferase 12 U/L (5-31); Bilirubin Total 0.5 mg/dL (0.0-1.0); Blood Urea Nitrogen 10 mg/dL (9-16); Calcium 10.1 mg/dL (8.4-10.2); Carbon Dioxide 30 mmol/L (22-29); Chloride 99 mmol/L (96-108); Cholesterol 181 mg/dL (<200); Estimated Glomerular Filt Rate > 60; Glucose Fasting 110 mg/dL (60-99); HDL Cholesterol 49 mg/dL (>40); LDL Cholesterol Calculated 106 mg/dL (<100); Potassium 3.5 mmol/L (3.3-5.1); Sodium 138 mmol/L (135-145); Total Protein 7.6 g/dL (6.5-8.0); Triglycerides 131 mg/dL (<150)
[2024-01-22 10:59] LABS: Vitamin D 25-OH Total 29.5 ng/mL (>30)
[2024-01-22 11:03] LABS: Microalbum/Creatinine Ratio Ur 6.1 ug/mg cr (<30)
== END 2024-01-22 07:52 | disposition home or self-care (01) ==
LOC: HO.HMGCLDS 07:51
PROVIDERS: PCP Internal Medicine; Visit Provider Internal Medicine
DX: Z00.00 Encounter for general adult medical examination without abnormal findings (principal); E55.9 Vitamin D deficiency, unspecified; R73.9 Hyperglycemia, unspecified; E11.9 Type 2 diabetes mellitus without complications
CPT/HCPCS: 36415; 80053; 80061; 82043; 82306; 82570; 83036

== ENCOUNTER 2024-01-28 10:40 | Outpatient (AMB) | payer OTHER, SELFPAY ==
--- NOTE | 2024-01-28 10:42 | MHC.PC.OV ---
Vital Signs 01/28/24 10:43 Height 5 ft 8 in Weight 297 lb BMI 45.2 BP 120/74 Blood Pressure Location Lt brachial Position Sitting Pulse 85 Pulse Source Pulse Oximeter Pulse Oximetry (%) 97 Oxygen Delivery Method Room Air Intake Visit Reasons: Follow-up from physical Allergies amoxicillin Allergy (Intermediate, Verified 01/28/24 10:43) Rash apixaban Allergy (Intermediate, Verified 01/28/24 10:43) Rash promethazine [Phenergan] Allergy (Intermediate, Verified 01/28/24 10:43) Itching Medication List - Last Reconciled 01/28/24 by Haley El MD albuterol sulfate 0.63 mg (3 mL) inhalation QID PRN albuterol sulfate 90 mcg/actuation 2 puffs inhalation Q6H PRN apremilast (Otezla) 30 mg PO BID blood sugar diagnostic ([employer] Ultra Test strips) 1 a day cholecalciferol (vitamin D3) 75 mcg PO DAILY cholecalciferol (vitamin D3) 50 mcg PO DAILY 30 days hydrochlorothiazide 50 mg PO DAILY Mounjaro (tirzepatide) 2.5 mg (0.5 mL) subcut QWEEK NS nebulizers As directed OneTouch Ultra2 Meter (blood-glucose meter) As directed NS rizatriptan take 1 tablet at onset of headache; if no relief, may repeat 1 tablet after at least 2 hrs PO sertraline 100 mg PO DAILY Tobacco use date assessed: 01/28/24 Dental Screening Dental Screen Date: 10/08/23 HPI Follow-up from physical HPI Details Pt presents for f/u of DM 2. She started Moujaro 6 weeks ago and reports side effects including nausea diarrhea stomach upset for 2 days afterwards getting better with each injection. Patient could not tolerate Metformin with Mounjaro because of diarrhea and stopped taking it 2 weeks ago. She has been under lot of stress because her had hip replacement surgery and father in law was diagnosed with heart failure. [facility] Medical History (Updated 01/28/24 @ 11:32 by Haley El MD) Annual physical exam Migraine Low vitamin D level Family hx colonic polyps Elevated C-reactive protein (CRP) Iron deficiency anemia Anxiety Depression Eczema Psoriasis Asthma Kidney stone Polycystic disease, ovaries Osteoarthritis of knees, bilateral Polyarthralgia Surgical History Hx of tonsillectomy History of cholecystectomy History of hysteroscopy History of arthroscopy of right knee Family History Paternal Grandfather FH: esophageal cancer Najera esophagus Father Najera esophagus Mother Colon polyps Sister No problems noted. Social History Household Members: Spouse and Children Housing: House Are you a primary housekeeper caregiver to a significant other at home: No Do you presently have visiting nurse or other home services: No Alcohol intake: current Alcohol intake frequency: holidays/special occasions only Alcohol type: wine Patient Tobacco Use Status: Never used Tobacco e-Cigarette/Vaping Use: Never Used Substance Use Type: Marijuana service: No Current occupational status: employed Cognitive needs: No Hearing needs: No Vision needs: No Questionnaire PHQ-9 Over the last 2 weeks, how often have you been bothered by any of the following problems? 1. Little interest or pleasure in doing things: not at all 2. Feeling down, depressed, or hopeless: not at all 3. Trouble falling or staying asleep, or sleeping too much: not at all 4. Feeling tired or having little energy: not at all 5. Poor appetite or overeating: not at all 6. Feeling bad about yourself - or that you are a failure or have let yourself or your family down: not at all 7. Trouble concentrating on things, such as reading the newspaper or watching television: not at all 8. Moving or speaking so slowly that other people could have noticed. Or the opposite - being so fidgety or restless that you have been moving around a lot more than usual: not at all 9. Thoughts that you would be better off or of hurting yourself in some way: not at all Total score: 0 Depression Screening Interpretation: Negative Depression Screening Done: Yes 03251 - PHQ-9 Billing: Yes Source: Developed by Drs. Livan Lima, Monica Castellano, Edward Draper and colleagues, with an educational gilbert from [employer]. Thrive Questionnaire Date Thrive assessed: 10/08/23 I am a: Patient What is your living situation today?: I have a steady place to live Within the past 12 months, did the food you bought not last and you didn't have the money to get more?: Never true Within the past 12 months, did you worry whether your food would run out before you got money to buy more?: Never true Do you have trouble paying for medicines?: No Do you have trouble getting transportation to medical appointments?: No Do you have trouble paying your heating and electricity bill?: No Do you have trouble taking care of your child, family member or friend?: No Do you have trouble with day-to-day activities such as bathing, preparing meals, shopping, managing finances, etc.?: No Are you currently unemployed and looking for a job?: No Are you interested in more education?: No Please select the resources that you would like help with: None Currently or been in a relationship where the following occur: No concerns reported THRIVE Score: 0 AUDIT C Alcohol Use Questionnaire (AUDIT-C) 1. How often do you have a drink containing alcohol?: Monthly or less 2. How many drinks containing alcohol do you have on a typical day when you are drinking?: 1 or 2 3. How often do you have six or more drinks on one occasion?: Never Total Score: 1 SHELBIE-7 AMB Questionnaire SHELBIE-7 Date SHELBIE - 7 assessed: 10/08/23 Feeling nervous, anxious, or on edge: 1 = Several days Not being able to stop or control worryin = Several days Worrying too much about different things: 1 = Several days Trouble relaxin = Several days Being so restless that it is hard to sit still: 0 = Not at all Becoming easily annoyed or irritable: 1 = Several days Feeling afraid as if something awful might happen: 0 = Not at all Total SHELBIE-7 score (0-4 normal; 5-9 mild; 10-14 moderate; 15-21 severe): 5 Source: Developed by Drs. Livan Lima, Monica Castellano, Edward Draper and colleagues, with an educational gilbert from [employer]. Review of Systems Const All systems reviewed & are unremarkable except as noted in HPI and below ENT Reports no additional complaints Card Reports no additional complaints Resp Reports no additional complaints GI Reports no additional complaints Physical exam (Primary Care) Vital Signs: Last Vital Signs Pulse 85 01/28/24 10:43 BP 120/74 01/28/24 10:43 Pulse Ox 97 01/28/24 10:43 Oxygen Delivery Method Room Air 01/28/24 10:43 BMI result Body Mass Index 45.2 Tobacco/Smoking Status: Tobacco use Status Tobacco use date assessed 01/28/24 01/28/24 10:43 Patient Tobacco Use Status Never used Tobacco 01/28/24 10:43 e-Cigarette/Vaping Use Never Used 01/28/24 10:43 PHQ-9: PHQ-9 Score PHQ-9: Total score 0 01/28/24 10:56 Depression Screening Interpretation: Negative Thrive Assessment: Date of Thrive Assessment Date Thrive assessed 10/08/23 01/28/24 10:43 Currently or been in a relationship where the following occur: No concerns reported Const General: no acute distress HENMT Throat: Yes posterior oropharynx normal Eyes General: appearance normal, both eyes and all related structures Resp Effort & Inspection: normal respiratory effort Auscultation: clear to auscultation bilaterally Cardio Rhythm: regular rhythm Heart sounds: S1 normal heart sound present and S2 normal heart sound present GI Inspection: Yes normal to inspection Palpation (GI): Soft to palpation Percussion: Yes normal to percussion Auscultation: normal bowel sounds Assessment and Plan Assessment & Plan (1) Depression: Code(s): F32.9 - Major depressive disorder, single episode, unspecified Plan: In remission on sertraline (2) Diabetes mellitus type 2, controlled: Code(s): E11.9 - Type 2 diabetes mellitus without complications Plan: A1c is down to 6.2, ADA diet increase physical activity discussed with the patient. Continue Mounjaro at the same dose for now and follow-up in 3 months with a fasting labs (3) Overweight: Code(s): E66.3 - Overweight Plan: Decreasing caloric intake increase physical activity discussed with the patient Orders: Orders Hemoglobin A1c 3 Months E11.9 - Type 2 diabetes mellitus without complications, E66.3 - Overweight, F32.9 - Major depressive disorder, single episode, unspecified Comprehensive [place]. Panel Fast 3 Months E11.9 - Type 2 diabetes mellitus without complications, E66.3 - Overweight, F32.9 - Major depressive disorder, single episode, unspecified Vitamin D 25-OH Total 3 Months E11.9 - Type 2 diabetes mellitus without complications, E66.3 - Overweight, F32.9 - Major depressive disorder, single episode, unspecified Microalbumin, Random (w Creat) 3 Months E11.9 - Type 2 diabetes mellitus without complications, E66.3 - Overweight, F32.9 - Major depressive disorder, single episode, unspecified Complete Blood Count Auto Diff 3 Months E11.9 - Type 2 diabetes mellitus without complications, E66.3 - Overweight, F32.9 - Major depressive disorder, single episode, unspecified Coding Level of Care Code Est Pt Level 4 (64038) Diagnoses Depression F32.9 Diabetes mellitus type 2, controlled E11.9 Overweight E66.3
[2024-01-28 10:43] VITALS: BP 120/74; PULSE 85; O2SAT 97; BMI 45.2
== END 2024-01-28 11:31 | disposition home or self-care (01) ==
PROVIDERS: PCP Internal Medicine; Visit Provider Internal Medicine
DX: E11.9 Type 2 diabetes mellitus without complications (principal); Z68.41 Body mass index [BMI] 40.0-44.9, adult; E66.01 Morbid (severe) obesity due to excess calories; F32.9 Major depressive disorder, single episode, unspecified
CPT/HCPCS: 99214

== ENCOUNTER → 2024-02-24 10:51 | Outpatient (RCR) | payer OTHER, SELFPAY ==
[2020-03-29 08:07] VITALS: BP 129/69; PULSE 86; RESP 20; TEMP 36.7; O2SAT 95; BMI 47.5
--- NOTE | 2020-03-29 08:26 | PM.HEMONCCN ---
Subjective - Subjective Chief complaint: Elevated inflammatory markers and iron deficiency anemia Patient: new to practice Consult date: 03/29/20 Primary Care Provider: Haley El MD HPI - Consult Narrative Reason for consult: chronic iron deficiency anemia, elevated CRP Narrative: Jennifer Delaney is a 44 year old female with history of chronic anemia as well as osteoarthritis. She has had a rheumatological workup which revealed elevated ESR and CRP. She has been told of chronic iron deficiency anemia and has been on oral iron supplementation previously. This has caused significant abdominal discomfort and therefore she does not take it anymore. she does not menstruate any more as she is on Mirena IUD. She was on warfarin until January of this year for left upper extremity DVT which occurred in the setting of using crutches for about a week. She had injured or developed pain in her right knee which made her use the crutches. She is a nonsmoker. There is no family history of DVT other than a grandmother developing DVT at age 80 when she travelled to [place]. She denies any abdominal complaints such as heartburn or reflux symptoms. No hematochezia, melena, change in bowel habits or constipation. She has never had a colonoscopy. Review of Systems - Constitutional Reports as per HPI, Reports no additional constitutional complaints - Cardiovascular Denies chest pain, Denies fast heart rate - Respiratory Reports no additional respiratory complaints - Gastrointestinal Reports no additional gastrointestinal complaints Oncology Screenings - ECOG Performance Status ECOG Performance Status: 0 [place] Medical History: Medical History (Last Updated 03/29/20 @ 08:18 by Batsheva Lantigua RN) Anxiety Asthma Deep vein thrombosis (DVT) of left upper extremity Depression Eczema History of hysteroscopy Kidney stone Osteoarthritis of knees, bilateral Polyarthralgia Polycystic disease, ovaries Psoriasis Family History: Family History (Last Updated 03/29/20 @ 08:19 by Batsheva Lantigua RN) Paternal Grandfather FH: esophageal cancer Surgical History: Surgical History (Last Updated 03/29/20 @ 08:18 by Batsheva Lantigua RN) History of arthroscopy of right knee History of cholecystectomy Hx of tonsillectomy Home Medications and Allergies Home Medications Medication Instructions Recorded Confirmed Type albuterol 90 mcg INHALATION Q4-5H PRN 03/29/20 03/29/20 History hydrochlorothiazide 1 tab PO DAILY 03/29/20 03/29/20 History sertraline 1 tab PO DAILY 03/29/20 03/29/20 History sumatriptan succinate [Imitrex] 100 mg PO BID PRN 03/29/20 03/29/20 History Allergies Allergy/AdvReac Type Severity Reaction Status Date / Time apixaban Allergy Intermediate Rash Verified 03/29/20 08:21 promethazine [Phenergan] Allergy Intermediate Itching Verified 03/29/20 08:21 Physical Exam Vital signs: Vital Signs Temp 98.0 F 03/29/20 08:07 Pulse 86 03/29/20 08:07 Resp 20 03/29/20 08:07 BP 129/69 03/29/20 08:07 Pulse Ox 95 03/29/20 08:07 Intake & Output 03/28/20 03/29/20 03/29/20 18:59 06:59 18:59 Other: Weight 141.974 kg Weight 141.974 kg - Constitutional Absent: no acute distress - Routine HEENT Exam Head: Present: normal inspection Eye: Present: EOMI - Routine Neck Exam Present: supple. Absent: lymphadenopathy - Routine Cardiovascular Exam Cardiovascular: Present: RRR, S1, S2 - Routine Abdominal Exam Present: normal bowel sounds, soft Hem/Onc Consult Result - Labs CBC & Chem 7: 03/29/20 09:35 Assessment and Plan (1) Anemia Status: Chronic 1. This is a pleasant 44-year-old woman with chronic iron deficiency anemia and osteoarthritis presenting with slightly elevated serum inflammatory markers. Both CRP and ESR elevated, this goes along with underlying inflammation probably related to her arthritis. She does warrant further workup for her iron deficiency anemia since she has not been menstruating. A referral to Gastroenterology for endoscopy/colonoscopy has been made. We discussed parenteral iron therapy since she is intolerant of oral iron. Her anemia is mild and depending on iron studies today, recommendations for parenteral iron therapy will be made. Rest of hematological workup is pending. I thank you very much for this referral. Follow-up in 2 months.
[2020-03-29 09:41] LABS: MANUAL DIFF FLAG NO
--- NOTE | 2020-03-29 09:57 | MHC.HEMONC ---
pt here for Consultation with Dr Juarez for CRP and Anemia with iron deficiency. She had mutiple labs drawn for Dr Juarez to review. We will obtain GI consult per MD order. Pt to have f/u per MD order.
[2020-03-29 10:19] LABS: Basophils Percent Auto 0.3 % (0-2); Eosinophils Absolute Auto 0.1 X10*3/uL (0.0-0.4); Eosinophils Percent Auto 1.2 % (0-4); Hematocrit 38.8 % (37-47); Hemoglobin 11.3 g/dl (12.0-16.0); Imm Gran Abs Auto 0.02 X10*3/uL (0.00-0.03); Imm Gran Pct Auto 0.3 % (0.0-0.4); Lymphocytes Absolute Auto 1.1 X10*3/uL (1.2-4.9); Lymphocytes Percent Auto 18.2 % (20-40); Mean Corpuscular HGB Conc 29.1 g/dl (31.0-35.0); Mean Corpuscular Hemoglobin 21.9 pg (27.0-33.0); Mean Corpuscular Volume 75.2 fL (80-98); Mean Platelet Volume 9.6 fL (9.4-12.3); Monocytes Absolute Auto 0.2 X10*3/uL (0.1-1.2); Monocytes Percent Auto 3.5 % (2-11); Neutrophils Absolute Auto 4.4 X10*3/uL (2.0-8.3); Neutrophils Percent Auto 76.5 % (45-73); Platelet Count 280 X10*3/uL (160-400); Red Blood Count 5.16 X10*6/uL (4.20-5.50); Red Cell Distribution Width 16.7 % (11.0-16.0); White Blood Count 5.8 X10*3/uL (4.8-10.8)
[2020-03-29 10:42] LABS: Iron 31 mcg/dL (30-160); Percent Iron Saturation 8 % (15-50); Total Iron Binding Capacity 411 mcg/dL (228-428); Unsaturated Iron Binding 380 ug/dL
[2020-03-29 11:02] LABS: Ferritin 25 ng/mL (10-250)
[2020-03-29 11:40] LABS: Folate 10.9 ng/mL (> or = 4.0); Vitamin B12 377 pg/mL (200-900)
[2020-03-31 15:17] LABS: Prot Elec - Albumin 3.8 g/dL (3.8-4.8); Prot Elec - Alpha1 0.4 g/dL (0.2-0.3); Prot Elec - Alpha2 0.9 g/dL (0.5-0.9); Prot Elec - Beta 1 0.6 g/dL (0.4-0.6); Prot Elec - Beta 2 0.4 g/dL (0.2-0.5); Prot Elec - Gamma 0.9 g/dL (0.8-1.7); Prot Elec - Total Protein 6.9 g/dL (6.1-8.1)
[2020-04-03 08:51] LABS: IgA 178 mg/dL (47-310); IgG 956 mg/dL (600-1640); IgM 104 mg/dL (50-300)
[2020-05-29 08:29] VITALS: BP 131/59; PULSE 87; RESP 20; TEMP 36.2; O2SAT 96; BMI 47.7
--- NOTE | 2020-05-29 08:31 | PM.HEMONCPN ---
Medical Summary - Medical Summary Date of Service: 05/29/20 Chief complaint: Follow-up Medical Summary: Diagnosis: Iron deficiency anemia History of chronic anemia as well as osteoarthritis. Rheumatological workup which revealed elevated ESR and CRP. She has been told of chronic iron deficiency anemia and has been on oral iron supplementation previously. This has caused significant abdominal discomfort and therefore she does not take it anymore. Left upper extremity DVT which occurred in the setting of using crutches for about a week, Was on anticoagulation for 3 months. Hematological workup revealed mild iron deficiency, normal vitamin B12/folate, normal serum protein electrophoresis and immunofixation. Interval History Interval history: Patient is here in follow-up. She has been doing well and reports no interim medical problems. She is going to be scheduled for EGD and colonoscopy, she has had telephone consultation with museum tour guide. Review of Systems - Constitutional Reports as per HPI, Reports no additional constitutional complaints PMFSH Medical History: Medical History (Last Reviewed 05/12/20 @ 11:53 by Flynn Hughes DO) Anxiety Asthma Deep vein thrombosis (DVT) of left upper extremity Depression Eczema Elevated C-reactive protein (CRP) Family hx colonic polyps History of hysteroscopy Iron deficiency anemia Kidney stone Low vitamin D level Osteoarthritis of knees, bilateral Polyarthralgia Polycystic disease, ovaries Psoriasis Family History: Family History (Last Reviewed 05/12/20 @ 11:53 by Flynn Hughes DO) Paternal Grandfather FH: esophageal cancer Najera esophagus Father Najera esophagus Mother Colon polyps Sister No problems noted. Surgical History: Surgical History (Last Reviewed 05/12/20 @ 11:53 by Flynn Hughes DO) History of arthroscopy of right knee History of cholecystectomy Hx of tonsillectomy Smoking status: Never smoker Home Medications and Allergies Home Medications Medication Instructions Recorded Confirmed Type albuterol 90 mcg INHALATION Q4-5H PRN 03/29/20 05/29/20 History sumatriptan succinate [Imitrex] 100 mg PO BID PRN 03/29/20 05/29/20 History Allergies Allergy/AdvReac Type Severity Reaction Status Date / Time apixaban Allergy Intermediate Rash Verified 05/29/20 08:31 promethazine [Phenergan] Allergy Intermediate Itching Verified 05/29/20 08:31 Exam Vital signs: Vital Signs Temp 97.1 F 05/29/20 08:29 Pulse 87 05/29/20 08:29 Resp 20 05/29/20 08:29 BP 131/59 L 05/29/20 08:29 Pulse Ox 96 05/29/20 08:29 Intake & Output 05/28/20 05/29/20 05/29/20 18:59 06:59 18:59 Other: Weight 142.5 kg Weight 142.5 kg Body Mass Index 47.7 - Constitutional Absent: no acute distress - Routine HEENT Exam Head: Present: normal inspection - Routine Cardiovascular Exam Cardiovascular: Present: RRR, S1, S2 - Routine Abdominal Exam Present: normal bowel sounds, soft Data - Labs CBC & Chem 7: 05/29/20 08:23 Labs: 03/29/20 09:35 Complete Blood Count Auto Diff Routine Ferritin Routine IRON PROFILE Routine Immunofixation Pnl, Serum Routine Protein Electrophoresis, Serum Routine Vitamin B12 and Folate Routine Laboratory Last Values WBC 5.8 X10*3/uL (4.8-10.8) 03/29/20 09:35 RBC 5.16 X10*6/uL (4.20-5.50) 03/29/20 09:35 Hgb 11.3 g/dl (12.0-16.0) L 03/29/20 09:35 Hct 38.8 % (37-47) 03/29/20 09:35 MCV 75.2 fL (80-98) L 03/29/20 09:35 MCH 21.9 pg (27.0-33.0) L 03/29/20 09:35 MCHC 29.1 g/dl (31.0-35.0) L 03/29/20 09:35 RDW 16.7 % (11.0-16.0) H 03/29/20 09:35 Plt Count 280 X10*3/uL (160-400) 03/29/20 09:35 MPV 9.6 fL (9.4-12.3) 03/29/20 09:35 Immature Gran % (Auto) 0.3 % (0.0-0.4) 03/29/20 09:35 Neut % (Auto) 76.5 % (45-73) H 03/29/20 09:35 Lymph % (Auto) 18.2 % (20-40) L 03/29/20 09:35 Calloway % (Auto) 3.5 % (2-11) 03/29/20 09:35 Eos % (Auto) 1.2 % (0-4) 03/29/20 09:35 Baso % (Auto) 0.3 % (0-2) 03/29/20 09:35 Lymph # (Auto) 1.1 X10*3/uL (1.2-4.9) L 03/29/20 09:35 Calloway # (Auto) 0.2 X10*3/uL (0.1-1.2) 03/29/20 09:35 Eos # (Auto) 0.1 X10*3/uL (0.0-0.4) 03/29/20 09:35 Baso # (Auto) 0.0 X10*3/uL (0.0-0.2) 03/29/20 09:35 Abs Immat Gran (auto) 0.02 X10*3/uL (0.00-0.03) 03/29/20 09:35 Absolute Neuts (auto) 4.4 X10*3/uL (2.0-8.3) 03/29/20 09:35 Absolute Nucleated RBC 0.000 X10*3/uL (0.0-0.012) 03/29/20 09:35 Nucleated RBC % (auto) 0.0 /100WBC (0.0-0.2) 03/29/20 09:35 Iron 31 mcg/dL (30-160) 03/29/20 09:35 TIBC 411 mcg/dL (228-428) 03/29/20 09:35 % Saturation 8 % (15-50) L 03/29/20 09:35 Unsat Iron Binding 380 ug/dL 03/29/20 09:35 Ferritin 25 ng/mL (10-250) 03/29/20 09:35 Total Protein (PEP) 6.9 g/dL (6.1-8.1) 03/29/20 09:35 Albumin (PEP) 3.8 g/dL (3.8-4.8) 03/29/20 09:35 Ylfgf-0-Rgyfjsane 0.4 g/dL (0.2-0.3) H 03/29/20 09:35 Cqzvm-0-Cdhkhwosw 0.9 g/dL (0.5-0.9) 03/29/20 09:35 Gmmv-3-Sztyhucl 0.6 g/dL (0.4-0.6) 03/29/20 09:35 Uiwr-5-Xpenocrs 0.4 g/dL (0.2-0.5) 03/29/20 09:35 Gamma Globulins 0.9 g/dL (0.8-1.7) 03/29/20 09:35 Abnorm Protein Band 1 TNP 03/29/20 09:35 Abnorm Protein Band 2 TNP 03/29/20 09:35 Abnorm Protein Band 3 TNP 03/29/20 09:35 PEP Interpretation SEE NOTE 03/29/20 09:35 Vitamin B12 377 pg/mL (200-900) 03/29/20 09:35 Folate 10.9 ng/mL (> or = 4.0) 03/29/20 09:35 IgG Total 956 mg/dL (600-1640) 03/29/20 09:35 IgA Total 178 mg/dL (47-310) 03/29/20:35 IgM 104 mg/dL (50-300) 03/29/20 09:35 KENIA Interpretation SEE NOTE 03/29/20 09:35 Progress Note: A/P (1) Anemia Status: Chronic Assessment and plan: 1. This is a pleasant 44-year-old woman with chronic iron deficiency anemia and osteoarthritis presenting with slightly elevated serum inflammatory markers. Both CRP and ESR elevated, this goes along with underlying inflammation probably related to her arthritis. Blood work showed iron deficiency anemia, she is going to be scheduled for EGD/colonoscopy, she does not menstruate. She is intolerant of oral iron, parenteral iron therapy will be considered depending on her iron studies. Follow-up in 6 months. - Time Spent With Patient Total time spent is greater than 50% in coordination of care (as documented) at patient's floor/unit and/or counseling patient: 15 - 24 minutes
--- NOTE | 2020-05-29 08:45 | MHC.HEMONC ---
Patient seen for follow-up. Labs drawn. Medical summary updated with nurse. Provider seen patient. Patient booked follow-up.
[2020-05-29 08:54] LABS: Hematocrit 37.3 % (37-47); Hemoglobin 10.8 g/dl (12.0-16.0); Mean Corpuscular Hemoglobin 21.8 pg (27.0-33.0); Mean Corpuscular Volume 75.2 fL (80-98); Mean Platelet Volume 9.6 fL (9.4-12.3); Platelet Count 277 X10*3/uL (160-400); Red Blood Count 4.96 X10*6/uL (4.20-5.50); Red Cell Distribution Width 16.5 % (11.0-16.0); White Blood Count 5.4 X10*3/uL (4.8-10.8)
[2020-05-29 09:16] LABS: Iron 27 mcg/dL (30-160); Percent Iron Saturation 7 % (15-50); Total Iron Binding Capacity 375 mcg/dL (228-428); Unsaturated Iron Binding 348 ug/dL
--- NOTE | 2020-05-29 11:35 | MHC.HEMONCMA ---
Called and spoke to patient, I advised her that her blood work came back and that she needs to have an iron infusion, I did explain to her the possible side effects: swelling, itching and SOB. Jennifer is ok with going forward, and I told her that I will call and schedule it. I called the pharmacy and got the dosing for IV Dextran, they gave me the dose and I will be faxing the order to Tanvi for her to call me back with dates.
--- NOTE | 2020-05-29 12:07 | MHC.HEMONCMA ---
Tanvi called and stated that she has some dates available for the infusion, she has 06/01, 06/13 and 06/14 all at 8am. I called and left a voicemail for patient to call me back with what date she would like to have.
[2020-12-06 08:29] VITALS: BP 123/72; PULSE 76; RESP 14; TEMP 36.2; O2SAT 98; BMI 50.5
[2020-12-06 08:47] LABS: MANUAL DIFF FLAG NO
--- NOTE | 2020-12-06 08:56 | P.PNHO_ITS ---
Medical Summary - Medical Summary Date of Service: 12/06/20 Chief complaint: Follow-up Medical Summary: Diagnosis: Iron deficiency anemia History of chronic anemia as well as osteoarthritis. Rheumatological workup which revealed elevated ESR and CRP. She has been told of chronic iron deficiency anemia and has been on oral iron supplementation previously. This has caused significant abdominal discomfort and therefore she does not take it anymore. Left upper extremity DVT which occurred in the setting of using crutches for about a week, Was on anticoagulation for 3 months. Hematological workup revealed mild iron deficiency, normal vitamin B12/folate, normal serum protein electrophoresis and immunofixation. Received iron dextran in May 2020. EGD/colonoscopy was negative in June 2020. Interval History Interval history: Patient is here in follow-up. She is doing quite well and has no complaints today. She tolerated iron dextran well but noticed some discoloration of the left forearm at the injection site which is gradually fading. She denies any complaints such as fatigue, exertional shortness of breath, dizziness or palpitations. She has had EGD and colonoscopy. She does not get menstrual pe riods anymore because of an IUD in place. Review of Systems - Constitutional Reports as per HPI, Reports no additional constitutional complaints - Cardiovascular Reports no additional cardiovascular complaints - Respiratory Reports no additional respiratory complaints - Gastrointestinal Reports no additional gastrointestinal complaints [facility] Medical History: Medical History (Last Updated 11/17/20 @ 10:12 by Ana Crooks RN) Anxiety Asthma Deep vein thrombosis (DVT) of left upper extremity Depression Eczema Elevated C-reactive protein (CRP) Family hx colonic polyps History of hysteroscopy Iron deficiency anemia Kidney stone Low vitamin D level Migraine Osteoarthritis of knees, bilateral Polyarthralgia Polycystic disease, ovaries Psoriasis Family History: Family History (Last Reviewed 11/16/20 @ 17:18 by Flynn Hughes DO) Paternal Grandfather FH: esophageal cancer Najera esophagus Father Najera esophagus Mother Colon polyps Sister No problems noted. Surgical History: Surgical History (Last Reviewed 11/16/20 @ 17:18 by Flynn Hughes DO) History of arthroscopy of right knee History of cholecystectomy Hx of tonsillectomy Social History: Social History (Last Reviewed 11/16/20 @ 17:18 by Flynn Hughes DO) Living Situation History: Household Members: Spouse Household Members: Children Housing: House Are you a primary district manager primary care sales to a significant other at home: No Do you presently have visiting nurse or other home services: No Alcohol History: Alcohol intake: current Alcohol History Details: Alcohol intake frequency: holiday/special occasion Alcohol type: wine Advance Directives: Advance Directives: No Advance Directives Information Provided: No Home Medications and Allergies Home Medications Medication Instructions Recorded Confirmed Type sumatriptan succinate [Imitrex] 100 mg PO BID PRN 03/29/20 11/16/20 History albuterol 90 mcg/actuation aerosol 90 mcg INHALATION Q4-5H PRN 06/20/20 12/06/20 History inhaler Allergies Allergy/AdvReac Type Severity Reaction Status Date / Time amoxicillin Allergy Intermediate Rash Verified 12/06/20 08:34 apixaban Allergy Intermediate Rash Verified 11/16/20 17:17 promethazine [Phenergan] Allergy Intermediate Itching Verified 11/16/20 17:17 Exam Vital signs: Vital Signs Temp 97.2 F 12/06/20 08:29 Pulse 76 12/06/20 08:29 Resp 14 12/06/20 08:29 BP 123/72 12/06/20 08:29 Pulse Ox 98 12/06/20 08:29 Intake & Output 12/05/20 12/06/20 12/06/20 18:59 06:59 18:59 Other: Weight 150.6 kg [place] Weight in Grams [id number] Weight 150.6 kg Body Mass Index 50.5 - Constitutional Absent: no acute distress - Routine HEENT Exam Head: Present: normal inspection - Routine Cardiovascular Exam Cardiovascular: Present: RRR, S1, S2 - Routine Abdominal Exam Present: normal bowel sounds, soft Data - Labs CBC & Chem 7: 12/06/20 08:45 Labs: 03/29/20 09:35 Complete Blood Count Auto Diff Routine Ferritin Routine IRON PROFILE Routine Immunofixation Pnl, Serum Routine Protein Electrophoresis, Serum Routine Vitamin B12 and Folate Routine 05/29/20 08:23 Complete Blood Count no Diff Routine IRON PROFILE Routine Laboratory Last Values WBC 5.4 X10*3/uL (4.8-10.8) 05/29/20 08:23 RBC 4.96 X10*6/uL (4.20-5.50) 05/29/20 08:23 Hgb 10.8 g/dl (12.0-16.0) L 05/29/20 08:23 Hct 37.3 % (37-47) 05/29/20 08:23 MCV 75.2 fL (80-98) L 05/29/20 08:23 MCH 21.8 pg (27.0-33.0) L 05/29/20 08:23 MCHC 29.0 g/dl (31.0-35.0) L 05/29/20 08:23 RDW 16.5 % (11.0-16.0) H 05/29/20 08:23 Plt Count 277 X10*3/uL (160-400) 05/29/20 08:23 MPV 9.6 fL (9.4-12.3) 05/29/20 08:23 Immature Gran % (Auto) 0.3 % (0.0-0.4) 03/29/20 09:35 Neut % (Auto) 76.5 % (45-73) H 03/29/20 09:35 Lymph % (Auto) 18.2 % (20-40) L 03/29/20 09:35 [place] % (Auto) 3.5 % (2-11) 03/29/20 09:35 Eos % (Auto) 1.2 % (0-4) 03/29/20 09:35 Baso % (Auto) 0.3 % (0-2) 03/29/20 09:35 Lymph # (Auto) 1.1 X10*3/uL (1.2-4.9) L 03/29/20 09:35 [place] # (Auto) 0.2 X10*3/uL (0.1-1.2) 03/29/20 09:35 Eos # (Auto) 0.1 X10*3/uL (0.0-0.4) 03/29/20 09:35 Baso # (Auto) 0.0 X10*3/uL (0.0-0.2) 03/29/20 09:35 Abs Immat Gran (auto) 0.02 X10*3/uL (0.00-0.03) 03/29/20 09:35 Absolute Neuts (auto) 4.4 X10*3/uL (2.0-8.3) 03/29/20 09:35 Absolute Nucleated RBC 0.000 X10*3/uL (0.0-0.012) 05/29/20 08:23 Nucleated RBC % (auto) 0.0 /100WBC (0.0-0.2) 05/29/20 08:23 Iron 27 mcg/dL (30-160) L 05/29/20 08:23 TIBC 375 mcg/dL (228-428) 05/29/20 08:23 % Saturation 7 % (15-50) L 05/29/20 08:23 Unsat Iron Binding 348 ug/dL 05/29/20 08:23 Ferritin 25 ng/mL (10-250) 03/29/20 09:35 Total Protein (PEP) 6.9 g/dL (6.1-8.1) 03/29/20 09:35 Albumin (PEP) 3.8 g/dL (3.8-4.8) 03/29/20 09:35 Mddil-8-Qgfjdfgal 0.4 g/dL (0.2-0.3) H 03/29/20 09:35 Ekuro-5-Eczwinpyi 0.9 g/dL (0.5-0.9) 03/29/20 09:35 Math-3-Jwhmmfam 0.6 g/dL (0.4-0.6) 03/29/20 09:35 Wyfx-4-Kjocmjhk 0.4 g/dL (0.2-0.5) 03/29/20 09:35 Gamma Globulins 0.9 g/dL (0.8-1.7) 03/29/20 09:35 Abnorm Protein Band 1 TNP 03/29/20 09:35 Abnorm Protein Band 2 TNP 03/29/20 09:35 Abnorm Protein Band 3 TNP 03/29/20 09:35 PEP Interpretation SEE NOTE 03/29/20 09:35 Vitamin B12 377 pg/mL (200-900) 03/29/20 09:35 Folate 10.9 ng/mL (> or = 4.0) 03/29/20 09:35 IgG Total 956 mg/dL (600-1640) 03/29/20 09:35 IgA Total 178 mg/dL (47-310) 03/29/20 09:35 IgM 104 mg/dL (50-300) 03/29/20 09:35 KENIA Interpretation SEE NOTE 03/29/20 09:35 Progress Note: A/P (1) Anemia Status: Chronic Assessment and plan: 1. This is a pleasant 45-year-old woman with chronic iron deficiency anemia and osteoarthritis presenting with slightly elevated serum inflammatory markers. Both CRP and ESR elevated, this goes along with underlying inflammation probably related to her arthritis. EGD/colonoscopy in June 2020 was negative. Anemia improved after iron dextran therapy in June 2020. Iron studies from today are pending. She reports some discoloration of forearm after iron dextran. Venofer will be ordered next time. Follow-up in 3 months. - Time Spent With Patient 15 - 24 minutes
[2020-12-06 09:04] LABS: Basophils Percent Auto 0.2 % (0-2); Eosinophils Absolute Auto 0.1 X10*3/uL (0.0-0.4); Eosinophils Percent Auto 1.3 % (0-4); Hematocrit 38.5 % (37-47); Hemoglobin 11.8 g/dl (12.0-16.0); Imm Gran Abs Auto 0.02 X10*3/uL (0.00-0.03); Imm Gran Pct Auto 0.3 % (0.0-0.4); Lymphocytes Absolute Auto 1.2 X10*3/uL (1.2-4.9); Lymphocytes Percent Auto 19.2 % (20-40); Mean Corpuscular HGB Conc 30.6 g/dl (31.0-35.0); Mean Corpuscular Hemoglobin 25.8 pg (27.0-33.0); Mean Corpuscular Volume 84.2 fL (80-98); Mean Platelet Volume 9.6 fL (9.4-12.3); Monocytes Absolute Auto 0.3 X10*3/uL (0.1-1.2); Monocytes Percent Auto 4.5 % (2-11); Neutrophils Absolute Auto 4.6 X10*3/uL (2.0-8.3); Neutrophils Percent Auto 74.5 % (45-73); Platelet Count 200 X10*3/uL (160-400); Red Blood Count 4.57 X10*6/uL (4.20-5.50); White Blood Count 6.2 X10*3/uL (4.8-10.8)
[2020-12-06 09:20] LABS: Iron 30 mcg/dL (30-160); Percent Iron Saturation 10 % (15-50); Total Iron Binding Capacity 299 mcg/dL (228-428); Unsaturated Iron Binding 269 ug/dL
--- NOTE | 2020-12-06 11:25 | MHC.HEMONCMA ---
Patient came in for a follow up, states that she is doing well. Clinical summary was reviewed and updated. Patient had labs and will return in 3 months for a follow up.
[2021-03-13 08:09] LABS: MANUAL DIFF FLAG NO
--- NOTE | 2021-03-13 08:13 | PM.HEMONCPN ---
Medical Summary - Medical Summary Date of Service: 03/13/21 Chief complaint: Follow-up Medical Summary: Diagnosis: Iron deficiency anemia History of chronic anemia as well as osteoarthritis. Rheumatological workup which revealed elevated ESR and CRP. She has been told of chronic iron deficiency anemia and has been on oral iron supplementation previously. This has caused significant abdominal discomfort and therefore she does not take it anymore. Left upper extremity DVT which occurred in the setting of using crutches for about a week, Was on anticoagulation for 3 months. Hematological workup revealed mild iron deficiency, normal vitamin B12/folate, normal serum protein electrophoresis and immunofixation. Received iron dextran in May 2020. EGD/colonoscopy was negative in June 2020. Interval History Interval history: Patient is here in follow-up. She is doing quite well and has no complaints today. She does not get menstrual periods anymore because of an IUD in place. Review of Systems - Constitutional Reports as per HPI, Reports no additional constitutional complaints, Denies lack of energy, Denies weakness - Respiratory Reports no additional respiratory complaints - Gastrointestinal Reports no additional gastrointestinal complaints [facility] Medical History: Medical History (Last Reviewed 03/13/21 @ 08:17 by Jennifer Resendez) Anxiety Asthma Deep vein thrombosis (DVT) of left upper extremity Depression Eczema Elevated C-reactive protein (CRP) Family hx colonic polyps Iron deficiency anemia Kidney stone Low vitamin D level Migraine Osteoarthritis of knees, bilateral Polyarthralgia Polycystic disease, ovaries Psoriasis Family History: Family History (Last Reviewed 03/13/21 @ 08:17 by Jennifer Resendez) Paternal Grandfather FH: esophageal cancer Najera esophagus Father Najera esophagus Mother Colon polyps Sister No problems noted. Surgical History: Surgical History (Last Reviewed 03/13/21 @ 08:17 by Jennifer Resendez) History of arthroscopy of right knee History of cholecystectomy History of hysteroscopy Hx of tonsillectomy Social History: Social History (Last Updated 03/13/21 @ 08:17 by Jennifer Resendez) Living Situation History: Household Members: Spouse Household Members: Children Housing: House Are you a primary behavioral health care coordinator to a significant other at home: No Do you presently have visiting nurse or other home services: No Alcohol History: Alcohol intake: current Alcohol History Details: Alcohol intake frequency: holiday/special occasion Alcohol type: wine Tobacco History: Patient Tobacco Use Status: Never used Tobacco Substance Use History: Use of substances other than those prescribed or required for medical reasons: Yes Substance Use Type: Marijuana Advance Directives: Advance Directives: No Advance Directives Information Provided: No Home Medications and Allergies Home Medications Medication Instructions Recorded Confirmed Type albuterol 90 mcg/actuation aerosol 90 mcg INHALATION Q4-5H PRN 06/20/20 03/13/21 History inhaler erenumab-aooe 70 mg/mL mg SUBCUT .once a month ml 02/22/21 History subcutaneous auto-injector (Aimovig Autoinjector) rizatriptan 5 mg tablet See Rx Instructions PO .COMPLEX 02/22/21 03/13/21 History Allergies Allergy/AdvReac Type Severity Reaction Status Date / Time amoxicillin Allergy Intermediate Rash Verified 03/13/21 08:18 apixaban Allergy Intermediate Rash Verified 03/13/21 08:18 promethazine [Phenergan] Allergy Intermediate Itching Verified 03/13/21 08:18 Exam Vital signs: Vital Signs Temp 97.2 F 12/06/20 08:29 Pulse 76 12/06/20 08:29 Resp 14 12/06/20 08:29 BP 123/72 12/06/20 08:29 Pulse Ox 98 12/06/20 08:29 Weight 150.6 kg Body Mass Index 50.5 - Constitutional Absent: no acute distress - Routine HEENT Exam Head: Present: normal inspection - Routine Cardiovascular Exam Cardiovascular: Present: RRR, S1, S2 - Routine Abdominal Exam Present: normal bowel sounds, soft Data - Labs CBC & Chem 7: 03/13/21 08:07 Labs: 03/29/20 09:35 Complete Blood Count Auto Diff Routine Ferritin Routine IRON PROFILE Routine Immunofixation Pnl, Serum Routine Protein Electrophoresis, Serum Routine Vitamin B12 and Folate Routine 05/29/20 08:23 Complete Blood Count no Diff Routine IRON PROFILE Routine Laboratory Last Values WBC 5.4 X10*3/uL (4.8-10.8) 05/29/20 08:23 RBC 4.96 X10*6/uL (4.20-5.50) 05/29/20 08:23 Hgb 10.8 g/dl (12.0-16.0) L 05/29/20 08:23 Hct 37.3 % (37-47) 05/29/20 08:23 MCV 75.2 fL (80-98) L 05/29/20 08:23 MCH 21.8 pg (27.0-33.0) L 05/29/20 08:23 MCHC 29.0 g/dl (31.0-35.0) L 05/29/20 08:23 RDW 16.5 % (11.0-16.0) H 05/29/20 08:23 Plt Count 277 X10*3/uL (160-400) 05/29/20 08:23 MPV 9.6 fL (9.4-12.3) 05/29/20 08:23 Immature Gran % (Auto) 0.3 % (0.0-0.4) 03/29/20 09:35 Neut % (Auto) 76.5 % (45-73) H 03/29/20 09:35 Lymph % (Auto) 18.2 % (20-40) L 03/29/20 09:35 [place] % (Auto) 3.5 % (2-11) 03/29/20 09:35 Eos % (Auto) 1.2 % (0-4) 03/29/20 09:35 Baso % (Auto) 0.3 % (0-2) 03/29/20 09:35 Lymph # (Auto) 1.1 X10*3/uL (1.2-4.9) L 03/29/20 09:35 [place] # (Auto) 0.2 X10*3/uL (0.1-1.2) 03/29/20 09:35 Eos # (Auto) 0.1 X10*3/uL (0.0-0.4) 03/29/20 09:35 Baso # (Auto) 0.0 X10*3/uL (0.0-0.2) 03/29/20 09:35 Abs Immat Gran (auto) 0.02 X10*3/uL (0.00-0.03) 03/29/20 09:35 Absolute Neuts (auto) 4.4 X10*3/uL (2.0-8.3) 03/29/20 09:35 Absolute Nucleated RBC 0.000 X10*3/uL (0.0-0.012) 05/29/20 08:23 Nucleated RBC % (auto) 0.0 /100WBC (0.0-0.2) 05/29/20 08:23 Iron 27 mcg/dL (30-160) L 05/29/20 08:23 TIBC 375 mcg/dL (228-428) 05/29/20 08:23 % Saturation 7 % (15-50) L 05/29/20 08:23 Unsat Iron Binding 348 ug/dL 05/29/20 08:23 Ferritin 25 ng/mL (10-250) 03/29/20 09:35 Total Protein (PEP) 6.9 g/dL (6.1-8.1) 03/29/20 09:35 Albumin (PEP) 3.8 g/dL (3.8-4.8) 03/29/20 09:35 Rnkbs-4-Ienpreltc 0.4 g/dL (0.2-0.3) H 03/29/20 09:35 Aaopa-0-Jydqukaud 0.9 g/dL (0.5-0.9) 03/29/20 09:35 Bsxv-6-Nybskmjv 0.6 g/dL (0.4-0.6) 03/29/20 09:35 Crpg-1-Ikncqlxx 0.4 g/dL (0.2-0.5) 03/29/20 09:35 Gamma Globulins 0.9 g/dL (0.8-1.7) 03/29/20 09:35 Abnorm Protein Band 1 TNP 03/29/20 09:35 Abnorm Protein Band 2 TNP 03/29/20 09:35 Abnorm Protein Band 3 TNP 03/29/20 09:35 PEP Interpretation SEE NOTE 03/29/20 09:35 Vitamin B12 377 pg/mL (200-900) 03/29/20 09:35 Folate 10.9 ng/mL (> or = 4.0) 03/29/20 09:35 IgG Total 956 mg/dL (600-1640) 03/29/20 09:35 IgA Total 178 mg/dL (47-310) 03/29/20 09:35 IgM 104 mg/dL (50-300) 03/29/20 09:35 KENIA Interpretation SEE NOTE 03/29/20 09:35 Assessment and Plan Patient Active problem list reviewed?: Yes (1) Anemia Status: Chronic Assessment and plan: 1. This is a pleasant 45-year-old woman with chronic iron deficiency anemia and osteoarthritis presenting with slightly elevated serum inflammatory markers. Both CRP and ESR elevated, this goes along with underlying inflammation probably related to her arthritis. EGD/colonoscopy in June 2020 was negative. Anemia improved after iron dextran therapy in June 2020. Anemia has resolved, as she is not menstruating anymore. She will now follow up with her PCP. - Time Spent With Patient Time Spent with Patient (in minutes): 15
[2021-03-13 08:14] VITALS: BP 139/82; PULSE 84; RESP 14; TEMP 36.2; O2SAT 97; BMI 49.2
[2021-03-13 08:16] LABS: Basophils Percent Auto 0.3 % (0-2); Eosinophils Absolute Auto 0.1 X10*3/uL (0.0-0.4); Eosinophils Percent Auto 0.7 % (0-4); Hematocrit 40.1 % (37-47); Hemoglobin 12.2 g/dl (12.0-16.0); Imm Gran Abs Auto 0.02 X10*3/uL (0.00-0.03); Imm Gran Pct Auto 0.3 % (0.0-0.4); Lymphocytes Percent Auto 14.5 % (20-40); Mean Corpuscular HGB Conc 30.4 g/dl (31.0-35.0); Mean Corpuscular Hemoglobin 25.1 pg (27.0-33.0); Mean Corpuscular Volume 82.3 fL (80-98); Mean Platelet Volume 9.3 fL (9.4-12.3); Monocytes Absolute Auto 0.4 X10*3/uL (0.1-1.2); Monocytes Percent Auto 5.1 % (2-11); Neutrophils Absolute Auto 5.6 X10*3/uL (2.0-8.3); Neutrophils Percent Auto 79.1 % (45-73); Platelet Count 211 X10*3/uL (160-400); Red Blood Count 4.87 X10*6/uL (4.20-5.50); Red Cell Distribution Width 14.7 % (11.0-16.0)
[2021-03-13 08:37] LABS: Iron 33 mcg/dL (30-160); Percent Iron Saturation 10 % (15-50); Total Iron Binding Capacity 329 mcg/dL (228-428); Unsaturated Iron Binding 296 ug/dL
--- NOTE | 2021-03-13 15:58 | MHC.HEMONCMA ---
Patient came in for a follow up, states that she is doing better. Clinical summary was reviewed and updated. Patient had labs and will now follow up with her PCP.
== END | disposition home or self-care (01) ==
LOC: HO.ONC 03-29 07:54
PROVIDERS: PCP Internal Medicine; Visit Provider Internal Medicine
DX: R79.82 Elevated C-reactive protein (CRP) (principal); R70.0 Elevated erythrocyte sedimentation rate; M19.90 Unspecified osteoarthritis, unspecified site; Z86.2 Personal history of diseases of the blood and blood-forming organs and certain disorders involving the immune mechanism; Z86.718 Personal history of other venous thrombosis and embolism
CPT/HCPCS: 36415; 82607; 82728; 82746; 82784; 83540; 84155; 84165; 85025; 85027; 86334; 99203; 99214

== ENCOUNTER 2024-03-11 08:04 | Outpatient (AMB) | payer OTHER, SELFPAY ==
[2024-03-11 08:08] VITALS: BP 126/74; PULSE 88; TEMP 36.9; O2SAT 97; BMI 43.9
--- NOTE | 2024-03-11 08:08 | AM.OFFWIN_ITS ---
Intake Vital Signs 03/11/24 08:08 Height 5 ft 8 in Weight 288 lb 8 oz BMI 43.9 BP 126/74 Blood Pressure Location Lt brachial Position Sitting Pulse 88 Pulse Source Pulse Oximeter Temp 98.4 F Temp Source Oral Pulse Oximetry (%) 97 Oxygen Delivery Method Room Air Intake Visit Reasons: EP Sinus infection not better after antiobiotics Patient Tobacco Use Status: Never used Tobacco Allergies amoxicillin Allergy (Intermediate, Verified 03/11/24 08:15) Rash apixaban Allergy (Intermediate, Verified 03/11/24 08:15) Rash promethazine [Phenergan] Allergy (Intermediate, Verified 03/11/24 08:15) Itching Do you need a note to return to daycare/school/sports/work: Yes HPI EP Sinus infection not better after antiobiotics HPI Details This note is constructed using voice recognition software. While every effort has been made to ensure accuracy, recreation therapy director errors may have been included. The patient is a 48 year old female who presents to the clinic today with URI symptoms not improving after antibiotics. She notes that 2 weeks ago she got water in her ear and started with an outer ear infection, tried [id number] drops, however it did not improve. She was evaluated by a telehealth urgent Care, and started on prescription drops, which did not seem to improve the symptoms. She then developed sinus congestion and pressure into her teeth. She was seen by another urgent care in person and started on doxycycline on Friday. The sinus congestion seemed to improve, however she developed a fever up to 10 3, with body aches and slight cough. She is using her albuterol inhaler, however not having to use it more than she normally would. She has an nebulizer available to her at home and has not needed that either [facility] Medical History (Updated 01/28/24 @ 11:32 by Haley El MD) Annual physical exam Migraine Low vitamin D level Family hx colonic polyps Elevated C-reactive protein (CRP) Iron deficiency anemia Anxiety Depression Eczema Psoriasis Asthma Kidney stone Polycystic disease, ovaries Osteoarthritis of knees, bilateral Polyarthralgia Surgical History Hx of tonsillectomy History of cholecystectomy History of hysteroscopy History of arthroscopy of right knee Family History Paternal Grandfather FH: esophageal cancer Najera esophagus Father Najera esophagus Mother Colon polyps Sister No problems noted. Social History Household Members: Spouse and Children Housing: House Are you a primary home care and home health aides teacher to a significant other at home: No Do you presently have visiting nurse or other home services: No Alcohol intake: current Alcohol intake frequency: holidays/special occasions only Alcohol type: wine Patient Tobacco Use Status: Never used Tobacco e-Cigarette/Vaping Use: Never Used Substance Use Type: Marijuana service: No Current occupational status: employed Cognitive needs: No Hearing needs: No Vision needs: No Physical Exam Vital Signs: Last Vital Signs Temp 98.4 F 03/11/24 08:08 Pulse 88 03/11/24 08:08 BP 126/74 03/11/24 08:08 Pulse Ox 97 03/11/24 08:08 Oxygen Delivery Method Room Air 03/11/24 08:08 BMI result Body Mass Index 43.9 Const General: cooperative, healthy appearing, comfortable and no acute distress Orientation/consciousness: patient oriented x3 Limitations: no limitations HEENT Head: Yes normal to inspection Ears: hearing grossly normal bilaterally, external ears normal and TM's normal bilaterally General nose exam: Normal external nose present, Normal nares present and No nasal discharge present Face and sinus: Yes normal facial exam and Yes sinuses nontender Mouth: Normal oral and palatal mucosa present and moist mucous membranes Throat: Yes tonsils normal, Yes uvula midline and Yes posterior oropharynx abnormal (Erythema) Eyes General: appearance normal, both eyes and all related structures Neck Neck: Yes normal visual inspection Resp Effort & Inspection: normal respiratory effort, able to speak in complete sentences, Actively coughing, no respiratory distress, not tachypneic, no tripod positioning and no use of accessory muscles Auscultation: clear to auscultation bilaterally Cardio Jugular venous distension: no JVD Rate: regular rate Rhythm: regular rhythm Heart sounds: S1 normal heart sound present, S2 normal heart sound present, no click, no gallops, no murmurs and no rubs Skin General skin exam: no rashes or lesions noted, elasticity normal and turgor normal Neuro General: patient oriented x3 Extrem General: Yes normal to inspection and Yes no clubbing, cyanosis or edema Assessment & Plan Assessment & Plan (1) URI (upper respiratory infection): Code(s): J06.9 - Acute upper respiratory infection, unspecified Qualifiers: URI type: unspecified URI Qualified Code(s): J06.9 - Acute upper respiratory infection, unspecified Plan: Viral swab obtained to rule out Covid based on symptoms. Advised mask wearing while symptomatic and quarantine per current CDC guidelines. Reviewed at home support methods including hydration, humidification, vix vapor rub, sinus rinse. Discussed treatment with antiviral therapy for covid with paxlovid including appropriate use and side effects, and need to start medication within 5 day of symptom onset, preferably within 48 hours of symptom onset. Patient wishes to decline paxlovid. Advised follow up with worsening symptoms such as dyspnea at rest, which would require emergent evaluation. Plan See above for full details and plan. Orders: Orders SARS-CoV2/FLU/RSV Today J06.9 - Acute upper respiratory infection, unspecified Coding Level of Care Code Est Pt Level 3 (31435) Diagnoses Upper respiratory tract infection, unspecified type J06.9 URI type: unspecified URI
== END 2024-03-11 09:01 | disposition home or self-care (01) ==
PROVIDERS: PCP Internal Medicine; Visit Provider Registered Nurse
DX: J06.9 Acute upper respiratory infection, unspecified (principal)

== ENCOUNTER 2024-03-11 08:04 | Outpatient (REF) | payer OTHER, SELFPAY ==
[2024-03-11 10:58] LABS: Influenza A PCR NEGATIVE (Negative); Influenza B PCR NEGATIVE (Negative); Resp Syncy Virus RNA Qual PCR NEGATIVE (Negative); SARS COV2 PCR INHOUSE POSITIVE (Negative)
== END 2024-03-11 08:05 | disposition home or self-care (01) ==
LOC: HO.HMGCLNP 08:04
PROVIDERS: PCP Internal Medicine; Visit Provider Registered Nurse
DX: J06.9 Acute upper respiratory infection, unspecified (principal)
CPT/HCPCS: 0241U

== ENCOUNTER 2024-06-11 10:12 | Outpatient (REF) | payer OTHER, SELFPAY ==
[2024-06-11 13:06] LABS: MANUAL DIFF FLAG NO
[2024-06-11 13:08] LABS: Basophils Percent Auto 0.4 % (0-2); Eosinophils Absolute Auto 0.1 X10*3/uL (0.0-0.4); Eosinophils Percent Auto 1.2 % (0-4); Hematocrit 39.2 % (37.0-47.0); Hemoglobin 11.5 g/dl (12.0-16.0); Imm Gran Abs Auto 0.02 X10*3/uL (0.00-0.03); Imm Gran Pct Auto 0.4 % (0.0-0.4); Lymphocytes Absolute Auto 1.3 X10*3/uL (1.2-4.9); Mean Corpuscular HGB Conc 29.3 g/dl (31.0-35.0); Mean Corpuscular Hemoglobin 22.7 pg (27.0-33.0); Mean Corpuscular Volume 77.3 fL (80.0-98.0); Mean Platelet Volume 9.5 fL (9.4-12.3); Monocytes Absolute Auto 0.2 X10*3/uL (0.1-1.2); Monocytes Percent Auto 3.9 % (2-11); Neutrophils Absolute Auto 3.6 x10*3/uL (2.0-8.3); Neutrophils Percent Auto 69.1 % (45-73); Platelet Count 240 X10*3/uL (160-400); Red Blood Count 5.07 X10*6/uL (4.20-5.50); Red Cell Distribution Width 15.9 % (11.0-16.0); White Blood Count 5.1 X10*3/uL (4.8-10.8)
[2024-06-11 13:17] LABS: Estimated Average Glucose 123 mg/dL; Hemoglobin A1c % 5.9 % (<6.0); Total Hemoglobin (HGBA1C) 2860.2627 umol/L
[2024-06-11 13:40] LABS: Creatinine Urine 136.01 mg/dL; Microalbum/Creatinine Ratio Ur 3.6 ug/mg cr (<30)
[2024-06-11 13:42] LABS: Alanine Aminotransferase 14 U/L (0-31); Albumin Level 3.6 g/dL (3.5-5.0); Alkaline Phosphatase 84 U/L (39-117); Anion Gap 8 (12-20); Aspartate Amino Transferase 17 U/L (5-31); Bilirubin Total 0.3 mg/dL (0.0-1.0); Blood Urea Nitrogen 8 mg/dL (9-16); Carbon Dioxide 34 mmol/L (22-29); Chloride 102 mmol/L (96-108); Estimated Glomerular Filt Rate > 60; Glucose Fasting 106 mg/dL (60-99); Potassium 4.2 mmol/L (3.3-5.1); Sodium 140 mmol/L (135-145); Total Protein 7.2 g/dL (6.5-8.0)
[2024-06-11 13:53] LABS: Vitamin D 25-OH Total 27.9 ng/mL (>30)
== END 2024-06-11 10:13 | disposition home or self-care (01) ==
LOC: HO.HMGCLDS 10:12
PROVIDERS: PCP Internal Medicine; Visit Provider Internal Medicine
DX: E11.9 Type 2 diabetes mellitus without complications (principal); F32.9 Major depressive disorder, single episode, unspecified; E66.3 Overweight
CPT/HCPCS: 36415; 80053; 82043; 82306; 82570; 83036; 85025

== ENCOUNTER 2024-06-17 11:51 | Outpatient (AMB) | payer OTHER, SELFPAY ==
--- NOTE | 2024-06-17 11:52 | A.OFFPC_ITS ---
Vital Signs 06/17/24 11:54 Height 5 ft 8 in Weight 280 lb BMI 42.6 BP 122/76 Blood Pressure Location Lt brachial Position Sitting Pulse 86 Pulse Source Pulse Oximeter Pulse Oximetry (%) 96 Oxygen Delivery Method Room Air Intake Visit Reasons: [id number] Intake Note: Pt is here today for 3 months follow up visit on lab and DM. Allergies amoxicillin Allergy (Intermediate, Verified 06/17/24 11:56) Rash apixaban Allergy (Intermediate, Verified 06/17/24 11:56) Rash promethazine [Phenergan] Allergy (Intermediate, Verified 06/17/24 11:56) Itching Medication List - Last Reconciled 06/17/24 by Haley El MD albuterol sulfate 0.63 mg (3 mL) inhalation QID PRN albuterol sulfate 90 mcg/actuation 2 puffs inhalation Q6H PRN apremilast (Otezla) 30 mg PO BID blood sugar diagnostic (NewsCraftedTouch Ultra Test strips) 1 a day cholecalciferol (vitamin D3) 75 mcg PO DAILY hydrochlorothiazide 50 mg PO DAILY nebulizers As directed OneTouch Ultra2 Meter (blood-glucose meter) As directed NS [potassium citrate 20 mg BID] sertraline 100 mg PO DAILY tirzepatide (Mounjaro) 5 mg (0.5 mL) subcut QWEEK Tobacco use date assessed: 06/17/24 Dental Screening Dental Screen Date: 06/17/24 Did you have a dental visit in the last 12 months?: Yes Did you have a dental problem in the last 6 months where you did not have access to dental care?: No Was dental information given to patient?: Patient has dentist HPI [id number] HPI Details Patient presents for the follow-up of type 2 diabetes chronic nephrolithiasis chronic anxiety stable on medications. Patient lost over 20 lb on Mounjaro 2.5 mg and started 5 mg last week. She has been exercising more and eating well-balanced diet PENDING SALE TO [facility] Medical History (Updated 06/17/24 @ 12:33 by Haley El MD) Annual physical exam Migraine Family hx colonic polyps Iron deficiency anemia Anxiety Depression Eczema Psoriasis Asthma Kidney stone Polycystic disease, ovaries Osteoarthritis of knees, bilateral Polyarthralgia Surgical History Hx of tonsillectomy History of cholecystectomy History of hysteroscopy History of arthroscopy of right knee Family History Paternal Grandfather FH: esophageal cancer Najera esophagus Father Najera esophagus Mother Colon polyps Sister No problems noted. Social History Household Members: Spouse and Children Housing: House Are you a primary home care administrator to a significant other at home: No Do you presently have visiting nurse or other home services: No Alcohol intake: current Alcohol intake frequency: holidays/special occasions only Alcohol type: wine Patient Tobacco Use Status: Never used Tobacco e-Cigarette/Vaping Use: Never Used Substance Use Type: Marijuana service: No Current occupational status: employed Cognitive needs: No Hearing needs: No Vision needs: No Questionnaire PHQ-9 Over the last 2 weeks, how often have you been bothered by any of the following problems? 1. Little interest or pleasure in doing things: several days 2. Feeling down, depressed, or hopeless: several days 3. Trouble falling or staying asleep, or sleeping too much: several days 4. Feeling tired or having little energy: several days 5. Poor appetite or overeating: not at all 6. Feeling bad about yourself - or that you are a failure or have let yourself or your family down: not at all 7. Trouble concentrating on things, such as reading the newspaper or watching television: several days 8. Moving or speaking so slowly that other people could have noticed. Or the opposite - being so fidgety or restless that you have been moving around a lot more than usual: not at all 9. Thoughts that you would be better off or of hurting yourself in some way: not at all Total score: 5 Depression Screening Interpretation: Negative Depression Screening Done: Yes 97167 - PHQ-9 Billing: Yes Source: Developed by Drs. Livan Lima, Monica Castellano, Edward Draper and colleagues, with an educational gilbert from [employer]. Thrive Questionnaire Date Thrive assessed: 06/17/24 I am a: Patient What is your living situation today?: I have a steady place to live Within the past 12 months, did the food you bought not last and you didn't have the money to get more?: Never true Within the past 12 months, did you worry whether your food would run out before you got money to buy more?: Never true Do you have trouble paying for medicines?: No Do you have trouble getting transportation to medical appointments?: No Do you have trouble paying your heating and electricity bill?: No Do you have trouble taking care of your child, family member or friend?: No Do you have trouble with day-to-day activities such as bathing, preparing meals, shopping, managing finances, etc.?: No Are you currently unemployed and looking for a job?: No Are you interested in more education?: No Please select the resources that you would like help with: None Currently or been in a relationship where the following occur: No concerns reported THRIVE Score: 0 AUDIT C Alcohol Use Questionnaire (AUDIT-C) 1. How often do you have a drink containing alcohol?: Monthly or less 2. How many drinks containing alcohol do you have on a typical day when you are drinking?: 1 or 2 3. How often do you have six or more drinks on one occasion?: Never Total Score: 1 SHELBIE-7 AMB Questionnaire SHELBIE-7 Date SHELBIE - 7 assessed: 06/17/24 Feeling nervous, anxious, or on edge: 1 = Several days Not being able to stop or control worryin = More than half the days Worrying too much about different things: 1 = Several days Trouble relaxin = Several days Being so restless that it is hard to sit still: 1 = Several days Becoming easily annoyed or irritable: 1 = Several days Feeling afraid as if something awful might happen: 1 = Several days Total SHELBIE-7 score (0-4 normal; 5-9 mild; 10-14 moderate; 15-21 severe): 8 Source: Developed by Drs. Livan Lima, Monica Castellano, Edward Draper and colleagues, with an educational gilbert from [employer]. SHELBIE-7 Assessment Billing SHELBIE-7 Assessment Tool: SHELBIE-7 Assessment 56878 Review of Systems Const All systems reviewed & are unremarkable except as noted in HPI and below ENT Reports no additional complaints Card Reports no additional complaints Resp Reports no additional complaints GI Reports no additional complaints Reports no additional complaints Physical exam (Primary Care) Vital Signs: Last Vital Signs Pulse 86 06/17/24 11:54 BP 122/76 06/17/24 11:54 Pulse Ox 96 06/17/24 11:54 Oxygen Delivery Method Room Air 06/17/24 11:54 BMI result Body Mass Index 42.6 Tobacco/Smoking Status: Tobacco use Status Tobacco use date assessed 06/17/24 06/17/24 12:03 Patient Tobacco Use Status Never used Tobacco 06/17/24 12:03 e-Cigarette/Vaping Use Never Used 06/17/24 11:55 PHQ-9: PHQ-9 Score PHQ-9: Total score 5 06/17/24 12:03 Depression Screening Interpretation: Negative Thrive Assessment: Date of Thrive Assessment Date Thrive assessed 06/17/24 06/17/24 11:55 Currently or been in a relationship where the following occur: No concerns reported Const General: no acute distress HENMT Face and sinus: Yes normal facial exam Resp Effort & Inspection: normal respiratory effort Auscultation: clear to auscultation bilaterally Cardio Rhythm: regular rhythm Heart sounds: S1 normal heart sound present and S2 normal heart sound present GI Inspection: Yes normal to inspection Palpation (GI): Soft to palpation Coding Level of Care Code Est Pt Level 4 (61981) Diagnoses Hx of colonoscopy Z98.890 Kidney stone N20.0 Vitamin D deficiency E55.9 Diabetes mellitus type 2, controlled E11.9 Additional Codes SHELBIE-7 Assessment Billing - SHELBIE-7 Assessment Tool: SHELBIE-7 Assessment 25432 ([id number]) PHQ-9 - 08916 - PHQ-9 Billing: Yes ([id number]) Assessment & Plan Assessment & Plan (1) Hx of colonoscopy: Comment: 2020 negative, repeat 2024, FHx colon polyps Code(s): Z98.890 - Other specified postprocedural states Category: Surgical Plan: Referred to GI for colonoscopy (2) Kidney stone: Comment: recurrent R kidney f/u PVU, S/P lithotripsy 01/05 for left kidney nephrolithiasis Code(s): N20.0 - Calculus of kidney Category: Medical Plan: Follow-up with nephrology and Urology (3) Vitamin D deficiency: Code(s): E55.9 - Vitamin D deficiency, unspecified Category: Medical Plan: Continue vitamin-D supplement (4) Diabetes mellitus type 2, controlled: Code(s): E11.9 - Type 2 diabetes mellitus without complications Category: Medical Plan: A1c is down to 5.9, continue 5 mg of Mounjaro and follow-up in 4 months with a fasting labs before. ADA diet regular exercise weight loss discussed with the patient Orders: Orders TSH reflex Free T4 4 Months E11.9 - Type 2 diabetes mellitus without complications, E55.9 - Vitamin D deficiency, unspecified, N20.0 - Calculus of kidney, Z98.890 - Other specified postprocedural states Vitamin D 25-OH Total 4 Months E11.9 - Type 2 diabetes mellitus without complications, E55.9 - Vitamin D deficiency, unspecified, N20.0 - Calculus of kidney, Z98.890 - Other specified postprocedural states Hemoglobin A1c 4 Months E11.9 - Type 2 diabetes mellitus without complications, E55.9 - Vitamin D deficiency, unspecified, N20.0 - Calculus of kidney, Z98.890 - Other specified postprocedural states Comprehensive [place]. Panel Fast 4 Months E11.9 - Type 2 diabetes mellitus without complications, E55.9 - Vitamin D deficiency, unspecified, N20.0 - Calculus of kidney, Z98.890 - Other specified postprocedural states Lipid Panel 4 Months E11.9 - Type 2 diabetes mellitus without complications, E55.9 - Vitamin D deficiency, unspecified, N20.0 - Calculus of kidney, Z98.890 - Other specified postprocedural states Microalbumin, Random (w Creat) 4 Months E11.9 - Type 2 diabetes mellitus without complications, E55.9 - Vitamin D deficiency, unspecified, N20.0 - Calculus of kidney, Z98.890 - Other specified postprocedural states Complete Blood Count Auto Diff 4 Months E11.9 - Type 2 diabetes mellitus without complications, E55.9 - Vitamin D deficiency, unspecified, N20.0 - Calculus of kidney, Z98.890 - Other specified postprocedural states Referrals Gastroenterology Referral Z00.00 - Encounter for general adult medical examination without abnormal findings
[2024-06-17 11:54] VITALS: BP 122/76; PULSE 86; O2SAT 96; BMI 42.6
--- OUTSIDE RECORDS SUMMARY | 2024-06-17 13:00 | XMS_ITS | Data Portability ---
Author Organization [facility], [address] Address [address] [place] [address] Care Team Providers Care Chief Operator Hydroformer Name Role Phone AMAYA BOTELLO Gui Developer Unavailable Assessment Encounter Date Assessment Date Assessment LastModified by Organization Details LastModified Time 02/27/2024 02/27/2024 You have been diagnosed with a External Ear infection and early erysipelas. Suggestions to help with your discomfort and recovery include: 1. Laying the effected ear on a heating pad or applying a warm rice bag or something warm. 2. Motrin and Tylenol Regularly - this will help with pain and inflammation of the Eustachian Tube - this is very important for a speedy recovery. 3. Antihistamine like Benedryl - will help with swelling. 4. Staying Hydrated If you develop any of the following Symptoms I would be seen again - I would recommend the ER 1. Fever > 101.0 2. Stiff Neck 3. Pain in the skull behind the Ear. 4. Worsening Pain 5. Bleeding from the Ear 6. Severe Sore Throat. 7. Severe Headache Antibiotics typically take 4-5 days to start working so do the above to help with your symptoms. Probiotics are important while taking antibiotics - I recommend Florastor Make sure you finish the full course of the antibiotics - if you don't this can lead to antibiotic resistance. Thank you for using [facility] today - and don't hesitate to contact our office if you have any concerns or questions. patricia Not available 02/27/2024 12:33:33 Plan of Treatment Reminders Order Date Submit Date Provider Last Modified By Organization Details Last Modified Time Details Appointments None recorded. Lab None recorded. Referral None recorded. Procedures None recorded. Surgeries None recorded. Imaging None recorded. Medication Orders ciprofloxac in 0.3 %-dexametha sone 0.1 % ear drops,suspe nsion 2023 024 [facility] #[id number], [address] [facility] [place], [address], 4 12:33:22 Patient TargetsNo targets recorded. Patient InstructionsNo instructions recorded. Reason for Referral None Reported. Problems Name Problem SNOMED Code Status Onset Date Resolution Date Notes Provider Name and Address Organization Details Recorded Time Type 2 diabetes mellitus 79862741 Active Na Michelle null, PA - [facility] 4 12:15:15 Polycystic ovary 759258373 Active Na Michelle null, PA - [facility] 4 12:15:27 Migraine 27443121 Active Na Michelle null, PA - [facility] 4 12:15:34 Pain of ear 918150901 Active 2023 ISAC CLIFFORD NP [address] [place], [address], PA - [facility] 4 12:32:43 Otitis externa of right ear 6562657345449 101 Active 2023 ISAC CLIFFORD NP [address] [place], [address], PA - [facility] 4 12:32:55 Problem Notes None recorded. Procedures Surgical History Date Name Laterality Status Provider Name and Address Organization Details Recorded Time 4 Virtual Visit completed Na Michelle PA - [facility] 02/27/2024 12:19:41 procedure on kidney completed Na Michelle PA - [facility] 02/27/2024 12:16:20 delivery completed Na Michelle PA - [facility] 02/27/2024 12:16:27 procedure on gallbladder completed Na Michelle PA - [facility] 02/27/2024 12:16:38 procedure on knee completed Na Michelle PA - [facility] 02/27/2024 12:17:01 Imaging Results None recorded. Procedure Notes None recorded. Medical Equipment None Reported. Allergies Allergen ID Allergen Name Allergen Category Reaction Reaction Severity Criticality Documentation Date Start Date Code Code System Note Provider Name and Address Organization Details Recorded Time 124796 Eliquis medicatio n Not available Not available Not available 02/27/2024 49723 36 RxNorm Na Michelle null, PA - [facility] 4 12:12:58 221468 amoxicill in medicatio n Not available Not available Not available 02/27/2024 723 RxNorm Na Michelle null, PA - [facility] 4 12:13:04 282309 Augmentin medicatio n Not available Not available Not available 02/27/2024 88184 2 RxNorm Na Michelle null, PA - [facility] 4 12:13:14 Medications Name Sig Start Date Stop Date Status Note LastModified by Organization Details LastModified Time Mirena 21 mcg/24 hr (up to 8 years) 52 mg intrauterin e device Take by intrauter ine route. active Not Available Not Available No t Available hydrochloro thiazide 50 mg tablet TAKE 1 TABLET BY MOUTH DAILY active Not Available Not Available No t Available sertraline 100 mg tablet TAKE 1 TABLET BY MOUTH EVERY DAY active Not Available Not Available No t Available OneTouch Ultra Test strips USE 1 STRIP PER DAY DIRECTED active Not Available Not Available No t Available prednisone 50 mg tablet TAKE 1 TABLET BY MOUTH EVERY DAY FOR 5 DAYS 02/26 completed Not Available Not Available Not Available fluocinonid e 0.05 % topical solution APPLY TO SCALP 2 WEEKS ON, 1 WEEK OFF. REPEAT NEEDED. active Not Available Not Available No t Available albuterol sulfate HFA 90 mcg/actuati on aerosol inhaler INHALE 2 PUFFS EVERY 6 HOURS NEEDED FOR SHORTNESS OF BREATH OR WHEEZING active Not Available Not Available No t Available cefdinir 300 mg capsule TAKE 1 CAPSULE BY MOUTH EVERY 12 HOURS FOR 7 DAYS 02/26 completed Not Available Not Available Not Available ciprofloxac in 0.3 %-dexametha sone 0.1 % ear drops,suspe nsion INSTILL 4 DROPS INTO AFFECTED EAR(S) BY OTIC ROUTE 2 TIMES PER DAY FOR 7 DAYS 2023 active Not Available Not Available Not Avai lable Otezla 30 mg tablet active Not Available Not Available No t Available Consumer BrandsTouch Ultra2 Meter USE DIRECTED. active Not Available Not Available No t Available Mounjaro 2.5 mg/0.5 mL subcutaneou s pen injector INJECT 2.5 MG SUBCUTANE OUSLY EVERY WEEK active Not Available Not Available No t Available Vitals Date Recorded Body height Body mass index (BMI) Body weight Provider Name and Address Organization Details Last Updated DateTime 02/27/2024 172.72 cm 44.1 kg/m2 598782.79 g Na Michelle PA - [facility] 02/27/2024 12:12:45 Social History Question Answer Notes LastModified by Organizat ion Details LastModified Time Tobacco Smoking Status Never Smoker Na Michelle null, PA - [facility] 02/27/2024 12:15:51 What Is Your Level Of Alcohol Consumption? None Information not available 02/27/2024 Are You Currently Employed? Yes Information not available 02/27/2024 What Is Your Relationship Status? Information not available 02/27/2024 Do You Use Any Illicit Or Recreational Drugs? No Information not available 02/27/2024 Have You Recently Traveled Abroad? No Information not available 02/27/2024 Do You Or Have You Ever Used Any Other Forms Of Tobacco Or Nicotine? No Information not available 02/27/2024 Sex: Unknown Functional Status None recorded. Mental Status None recorded. Family History Nothing Reported. Medical History No medical history recorded. Gynecological History Statement/Question Response Date of LMP 02/24/2024 Is there any chance of ? No LMP Approximate Obstetrics History GPAL:G 0 P 0 0 0 0 Immunizations Vaccine Type Date Status Note Provider Nam e and Address Organization Details Recorded Time COVID-19, mRNA, LNP-S, PF, 30 mcg/0.3 mL dose 06/27/2021 completed Na Michelle null, PA - [facility] 02/27/2024 12:12:49 COVID-19, mRNA, LNP-S, PF, 30 mcg/0.3 mL dose 08/25/2020 completed Na Michelle null, PA - [facility] 02/27/2024 12:12:49 COVID-19, mRNA, LNP-S, PF, 30 mcg/0.3 mL dose 09/15/2020 completed NaFILEMON Fall - [facility] 02/27/2024 12:12:49 Past Encounters Encounter ID Performer Location Encounter Start Date Encounter Closed Date Diagnosis/Indication Diagnosis SNOMED-CT Code Diagnosis ICD10 Code [id number] [address] [facility] [place] [address] 06/17/2017 18:20:58 06/17/2017 20:10:37 [id number] [address] [facility] [place] [address] 11/02/2016 08:51:38 11/02/2016 09:38:12 [id number] [address] [place] [address] [place] [address] 07/09/2015 09:06:42 07/09/2015 09:39:08 [id number] [address] [place] [address] 06/27/2019 12:24:35 06/27/2019 13:57:05 [id number] [address] [facility] [place] [id number] 04/04/2016 08:19:40 04/04/2016 10:51:25 [id number] [address] [place] [address] [place] [address] 03/12/2016 17:02:13 03/12/2016 18:36:00 [id number] [address] [facility] [place] [address] 10/31/2021 08:34:08 10/31/2021 09:31:27 [id number] [address] [facility] [place] [address] 01/06/2017 12:56:20 01/06/2017 14:59:04 [id number] [address] [facility] [place] [address] 03/02/2018 08:50:46 03/02/2018 09:29:31 [id number] [address] [facility] [address] [place] [address] 04/16/2016 15:53:33 04/16/2016 17:05:37 [id number] [place]IFFORD [place] [address] [address] 02/27/2024 09:56:55 02/27/2024 12:41:28 Pain of ear 329106814 H92.09 Otitis ext aimee of right ear 2038593131 206058 H60.91 Health Concerns Section Related Observation LastModified by Organization Detai ls LastModified Time None Recorded Concern Status LastModified by Organization Details LastModified Time None Recorded Advance Directives Directive None Recorded Payers Encounter Date Sequence Insurance Name Policy Number Policy Byrnes Covered Member ID Byrnes Member ID Guarantor Name 06/27/2019 1 [employer]) [id number] 3 Jennifer A Delaney [id number] Jennifer A Delaney 10/31/2021 1 [employer] [id number] 3 Jennifer A Delaney [id number] Jennifer A Delaney 02/27/2024 1 [employer]) [id number] 3 Jennifer A Delaney [id number] Jennifer A Delaney Notes Date Note Type Note Provider Name and Address Organization Details Recorded Time 02/27/2024 text/html Ear Pain Brief HPIReported bypatient.Location :left Onset/Timing:new onsetNotes:pot reports sensation fo ear fullness. after a shower yesterday Verified the Patient's Name and at the start of visit.Audio/Visual Technology was used and functioning properly.Patient (and Guardian) - verbally understands limitations of a medical exam using A/V Technology - understands alternative treatment would be to visit an on-site medical facility.The patient did confirm they are physically located in the state that I hold a valid medical license. ISAC CLIFFORD NP [address] [place], [address], PA - [facility] 02/27/2024 20:00:06 OBGyn Episode No OBEpisode recorded.
== END 2024-06-17 12:35 | disposition home or self-care (01) ==
PROVIDERS: PCP Internal Medicine; Visit Provider Internal Medicine
DX: Z98.890 Other specified postprocedural states (principal); N20.0 Calculus of kidney; E55.9 Vitamin D deficiency, unspecified; E11.9 Type 2 diabetes mellitus without complications

== ENCOUNTER → 2024-06-17 11:51 | Outpatient (BNVA) | payer OTHER, SELFPAY | PROVIDERS: PCP Internal Medicine; Visit Provider Internal Medicine | DX: E11.9 Type 2 diabetes mellitus without complications (principal); N20.0 Calculus of kidney; E55.9 Vitamin D deficiency, unspecified | CPT/HCPCS: 96127 ==

== ENCOUNTER 2025-01-14 08:59 | Outpatient (REF) | payer OTHER, SELFPAY ==
--- OUTSIDE RECORDS SUMMARY | 2025-01-14 09:14 | XMS_ITS | Clinical Summary ---
Author Organization [facility] Address [address] [address] Phone Care Team Providers Care Powder Cutting Operator Name Role Phone Haley El MD Primary Care Provider [phone] Allergies Active Allergy Reactions Criticality Noted Date Comments Amoxicillin 05/04/2024 Dust Mite Extract 05/04/2024 Molds & Smuts 05/04/2024 Other 05/04/2024 TREES Medications sertraline (ZOLOFT) 100 MG tablet Take 100 mg by mouth 1 (one) time each day Active metroNIDAZOLE (METROGEL) 0.75 % gel APPLY TWICE A DAY TO FACE DAILY FOR REDNESS 03/18/2024 Active hydroCHLOROthia zide (HYDRODIURIL) 50 MG tablet Take 50 mg by mouth 1 (one) time each day Active Otezla 30 MG tablet 04/27/2024 Active Tirzepatide (Mounjaro) 2.5 MG/0.5ML solution auto-injector Inject under the skin Active Cholecalciferol (Vitamin D3) 75 MCG (3000 UT) tablet Take by mouth Active albuterol HFA (PROVENTIL HFA;VENTOLIN HFA) 108 (90 Base) MCG/ACT inhaler Inhale 2 puffs every 6 (six) hours if needed for wheezing Active rizatriptan (MAXALT) 10 MG tablet Take 10 mg by mouth 1 (one) time if needed for migraine May repeat in 2 hours if unresolved. Do not exceed 30 mg in 24 hours. Active potassium citrate 10 MEQ (1080 MG) CR tablet Take 2 tablets (20 mEq total) by mouth in the morning and 2 tablets (20 mEq total) in the evening. Take with meals. Do not crush, chew, or split.. 360 tablet 3 05/04/2024 04/29/20 25 Active Active Problems Problem Noted Date Diagnosed Date Morbid obesity 05/04/2024 Polycystic ovary 05/04/2024 Social History Tobacco Use Types Packs/Day Years Used Date Smoking Tobacco: Never Assessed Comments Unknown Sex and Gender Information Value Date Recorded Sex Assigned at Not on file Legal Sex Female 2:41 PM EDT Gender Identity Not on file Sexual Orientation Not on file Last Filed Vital Signs Vital Sign Reading Time Taken Comments Blood Pressure 136/80 05/04/2024 9:35 AM EST Pulse 86 05/04/2024 9:35 AM EST Temperature - - Respiratory Rate - - Oxygen Saturation - - Inhaled Oxygen Concentration - - Weight 130 kg (286 lb) 05/04/2024 9:35 AM EST Height - - Body Mass Index - - Plan of Treatment Upcoming Encounters Date Type Department Care Team (Late st Contact Info) Description 01/28/2025 9:00 AM EDT Office Visit [facility] [address] [address] Rasta Calhoun MD [address] [address] Health Maintenance Due Date Last Done Comments Hepatitis B Vaccine (1 of 3 - 19+ 3-dose series) 04/13 Pneumococcal Vaccine: Peds ( 0 to 5 Years) and At-Risk Patients (6 to 49 Years) (1 of 2 - PCV) 1994 Colorectal Cancer Screening: Annual FOBT 2024 Colorectal Cancer Screening: Colonoscopy 2024 Colorectal Cancer Screening: Sigmoidoscopy 2024 Diabetes: Hemoglobin A1C 10/18/2024 Diabetes: Ophthalmology Exam 10/18/2024 Diabetes: Pedal Pulse Checked 10/18/2024 Diabetes: Sensory Foot Exam 10/18/2024 Diabetes: Visual Foot Exam 10/18/2024 Influenza Vaccine (#1) 2025 Insurance Care Teams Powder Cutting Operator Relationship Specialty Start Date End Date Haley El [place] [address] PCP - General Internal Medicine 02/03/24
[2025-01-14 10:51] LABS: MANUAL DIFF FLAG NO
[2025-01-14 10:58] LABS: Hematocrit 39.5 % (37.0-47.0); Hemoglobin 11.8 g/dl (12.0-16.0); Imm Gran Abs Auto 0.02 X10*3/uL (0.00-0.03); Imm Gran Pct Auto 0.3 % (0.0-0.4); Lymphocytes Absolute Auto 1.3 X10*3/uL (1.2-4.9); Mean Corpuscular HGB Conc 29.9 g/dl (31.0-35.0); Mean Corpuscular Hemoglobin 22.6 pg (27.0-33.0); Mean Corpuscular Volume 75.5 fL (80.0-98.0); NRBC Abs Auto 0.000 X10*3/uL (0.0-0.012); NRBC Pct Auto 0.0 /100WBC (0.0-0.2); Platelet Count 256 X10*3/uL (160-400); Red Blood Count 5.23 X10*6/uL (4.20-5.50); White Blood Count 6.0 X10*3/uL (4.8-10.8)
[2025-01-14 11:26] LABS: Alanine Aminotransferase 16 U/L (0-31); Albumin Level 3.9 g/dL (3.5-5.0); Alkaline Phosphatase 83 U/L (39-117); Anion Gap 11 (12-20); Aspartate Amino Transferase 17 U/L (5-31); Blood Urea Nitrogen 9 mg/dL (9-16); Calcium 8.7 mg/dL (8.4-10.2); Carbon Dioxide 34 mmol/L (22-29); Chloride 98 mmol/L (96-108); Cholesterol 159 mg/dL (<200); Estimated Glomerular Filt Rate > 60; HDL Cholesterol 45 mg/dL (>40); Potassium 3.6 mmol/L (3.3-5.1); Sodium 139 mmol/L (135-145); Total Protein 7.2 g/dL (6.5-8.0); Triglycerides 91 mg/dL (<150)
[2025-01-14 12:35] LABS: Hemoglobin A1C 119.5713 umol/L; Total Hemoglobin (HGBA1C) 3144.9515 umol/L
== END 2025-01-14 09:00 | disposition home or self-care (01) ==
LOC: HO.HMGCLDS 08:59
PROVIDERS: PCP Internal Medicine; Visit Provider Internal Medicine
DX: E11.9 Type 2 diabetes mellitus without complications (principal); N20.0 Calculus of kidney; E55.9 Vitamin D deficiency, unspecified; Z98.890 Other specified postprocedural states
CPT/HCPCS: 36415; 80053; 80061; 82043; 82306; 82570; 83036; 84443; 85025

== ENCOUNTER 2025-01-18 08:29 | Outpatient (AMB) | payer OTHER, SELFPAY ==
--- NOTE | 2025-01-18 08:39 | A.OFFPC_ITS ---
Vital Signs 01/18/25 08:42 Height 5 ft 8 in Weight 262 lb BMI 39.8 BP 104/66 Blood Pressure Location Lt brachial Position Sitting Respiration 18 Pulse 85 Pulse Source Pulse Oximeter Temp 98.2 F Temp Source Oral Pulse Oximetry (%) 95 Oxygen Delivery Method Room Air Intake Visit Reasons: PE Intake Note: Pt is here today for PE. Allergies amoxicillin Allergy (Intermediate, Verified 01/18/25 08:45) Rash apixaban Allergy (Intermediate, Verified 01/18/25 08:45) Rash promethazine (Phenergan) Allergy (Intermediate, Verified 01/18/25 08:45) Itching Medication List - Last Reconciled 01/18/25 by Haley El MD albuterol sulfate 0.63 mg (3 mL) inhalation QID PRN albuterol sulfate 90 mcg/actuation 2 puffs inhalation Q6H PRN apremilast (Otezla) 30 mg PO BID blood sugar diagnostic (CBA PHARMATouch Ultra Test strips) 1 a day cholecalciferol (vitamin D3) 75 mcg PO DAILY hydrochlorothiazide 50 mg PO DAILY nebulizers As directed OneTouch Ultra2 Meter (blood-glucose meter) As directed NS [potassium citrate 20 mg BID] sertraline 100 mg PO DAILY tirzepatide (Mounjaro) 5 mg (0.5 mL) subcut QWEEK Tobacco use date assessed: 01/18/25 Dental Screening Dental Screen Date: 01/18/25 Did you have a dental visit in the last 12 months?: Yes Did you have a dental problem in the last 6 months where you did not have access to dental care?: No Was dental information given to patient?: Patient has dentist HPI PE HPI Details Pt presents for PE. Pt c/o increased anxiety due to her difficulties at work. Pt has been seeing a counselor. She has been decreasing caloric intake exercising regularly and lost 40 lb since starting Mounjaro. Patient would like to increase the dose to 7.5 mg PFSH Medical History (Updated 01/18/25 @ 09:56 by Haley El MD) Overweight Annual physical exam Migraine Family hx colonic polyps Iron deficiency anemia Anxiety Depression Eczema Psoriasis Asthma Kidney stone Polycystic disease, ovaries Osteoarthritis of knees, bilateral Polyarthralgia Surgical History (Updated 01/18/25 @ 09:13 by Haley El MD) Hx of colonoscopy Hx of tonsillectomy History of cholecystectomy History of hysteroscopy History of arthroscopy of right knee Family History Paternal Grandfather FH: esophageal cancer Najera esophagus Father Najera esophagus Mother Colon polyps Sister No problems noted. Social History Household Members: Spouse and Children Housing: House Are you a primary patient care technician instructor to a significant other at home: No Do you presently have visiting nurse or other home services: No Alcohol intake: current Alcohol intake frequency: holidays/special occasions only Alcohol type: wine Patient Tobacco Use Status: Never used Tobacco e-Cigarette/Vaping Use: Never Used Substance Use Type: Marijuana service: No Current occupational status: employed Cognitive needs: No Hearing needs: No Vision needs: No Questionnaire Thrive Questionnaire Date Thrive assessed: 01/18/25 I am a: Patient What is your living situation today?: I have a steady place to live Within the past 12 months, did the food you bought not last and you didn't have the money to get more?: Never true Within the past 12 months, did you worry whether your food would run out before you got money to buy more?: Never true Do you have trouble paying for medicines?: No Do you have trouble getting transportation to medical appointments?: No Do you have trouble paying your heating and electricity bill?: No Do you have trouble taking care of your child, family member or friend?: No Do you have trouble with day-to-day activities such as bathing, preparing meals, shopping, managing finances, etc.?: No Are you currently unemployed and looking for a job?: No Are you interested in more education?: No Please select the resources that you would like help with: None Currently or been in a relationship where the following occur: No concerns reported THRIVE Score: 0 AUDIT C Alcohol Use Questionnaire (AUDIT-C) 1. How often do you have a drink containing alcohol?: Monthly or less 2. How many drinks containing alcohol do you have on a typical day when you are drinking?: 1 or 2 3. How often do you have six or more drinks on one occasion?: Never Total Score: 1 SHELBIE-7 AMB Questionnaire SHELBIE-7 Date SHELBIE - 7 assessed: 06/17/24 Source: Developed by Drs. Lvian Lima, Monica Castellano, Edward Draper and colleagues, with an educational gilbert from [employer]. Review of Systems Const All systems reviewed & are unremarkable except as noted in HPI and below Eyes Reports no additional complaints ENT Reports no additional complaints Card Reports no additional complaints Resp Reports no additional complaints GI Reports no additional complaints Reports no additional complaints Musc Reports no additional complaints Physical exam (Primary Care) Vital Signs: Last Vital Signs Temp 98.2 F 01/18/25 08:42 Pulse 85 01/18/25 08:42 Resp 18 01/18/25 08:42 BP 104/66 01/18/25 08:42 Pulse Ox 95 01/18/25 08:42 Oxygen Delivery Method Room Air 01/18/25 08:42 BMI result Body Mass Index 39.8 Tobacco/Smoking Status: Tobacco use Status Tobacco use date assessed 01/18/25 01/18/25 08:51 Patient Tobacco Use Status Never used Tobacco 01/18/25 08:51 e-Cigarette/Vaping Use Never Used 01/18/25 08:41 Thrive Assessment: Date of Thrive Assessment Date Thrive assessed 01/18/25 01/18/25 08:52 Currently or been in a relationship where the following occur: No concerns reported Const General: no acute distress HENMT Head: Yes normal to inspection Throat: Yes posterior oropharynx normal Eyes General: appearance normal, both eyes and all related structures Neck Neck: Yes no lymphadenopathy and Yes supple Resp Effort & Inspection: normal respiratory effort Auscultation: clear to auscultation bilaterally Cardio Rhythm: regular rhythm Heart sounds: S1 normal heart sound present and S2 normal heart sound present GI Inspection: Yes normal to inspection Palpation (GI): Soft to palpation Percussion: Yes normal to percussion Auscultation: normal bowel sounds Coding Level of Care Code Est Pt Prev Care 40-64y(75159) Diagnoses Hx of colonoscopy Z98.890 Hyperglycemia R73.9 Anemia D64.9 Annual physical exam Z00.00 Overweight E66.3 Assessment & Plan Assessment & Plan (1) Hx of colonoscopy: Comment: 2020 negative, repeat 2024, FHx colon polyps, Code(s): Z98.890 - Other specified postprocedural states Category: Surgical Plan: Referred to GI for repeat colonoscopy (2) Hyperglycemia: Code(s): R73.9 - Hyperglycemia, unspecified Category: Medical Plan: A1c is 5.3, continue ADA diet regular exercise (3) Anemia: Code(s): D64.9 - Anemia, unspecified Category: Medical Plan: Monitor CBC and iron (4) Annual physical exam: Code(s): Z00.00 - Encounter for general adult medical examination without abnormal findings Category: Medical Plan: Well-balanced diet regular physical activity discussed with the patient. She is up-to-date with the mammogram Pap smear and will have a repeat colonoscopy, she will follow-up in 6 months (5) Overweight: Comment: BMI 39.8 01/2025 Code(s): E66.3 - Overweight Category: Medical Plan: Increase Mounjaro to 7.5 mg weekly. Continue decreasing caloric intake regular physical activity Orders: Orders Vitamin D 25-OH Total 3 Months E11.9 - Type 2 diabetes mellitus without complications, E55.9 - Vitamin D deficiency, unspecified, R73.9 - Hyperglycemia, unspecified Comprehensive [place]. Panel Fast 3 Months E11.9 - Type 2 diabetes mellitus without complications, E55.9 - Vitamin D deficiency, unspecified, R73.9 - Hyperglycemia, unspecified IRON PROFILE 3 Months D50.9 - Iron deficiency anemia, unspecified, D64.9 - Anemia, unspecified Hemoglobin A1c 3 Months E11.9 - Type 2 diabetes mellitus without complications, E55.9 - Vitamin D deficiency, unspecified, R73.9 - Hyperglycemia, unspecified Hemoglobin A1c 6 Months E11.9 - Type 2 diabetes mellitus without complications, R73.9 - Hyperglycemia, unspecified Comprehensive [place]. Panel Fast 6 Months E11.9 - Type 2 diabetes mellitus without complications, R73.9 - Hyperglycemia, unspecified Vitamin D 25-OH Total 6 Months E11.9 - Type 2 diabetes mellitus without complications, R73.9 - Hyperglycemia, unspecified Complete Blood Count Auto Diff 3 Months D50.9 - Iron deficiency anemia, unspecified, D64.9 - Anemia, unspecified Referrals Gastroenterology Referral Z98.890 - Other specified postprocedural states Medications: New buspirone 5 mg PO BID 180 tabs 0RF Mounjaro (tirzepatide) 7.5 mg (0.5 mL) subcut QWEEK 6 mL 0RF NS Discontinued cholecalciferol (vitamin D3) Discontinued Reason: Doctor's Order 75 mcg PO DAILY 90 tabs 3RF
--- OUTSIDE RECORDS SUMMARY | 2025-01-18 08:40 | XMS_ITS | Clinical Summary ---
Author Organization [facility] Address [address] [address] Phone Care Team Providers Care Clam Grader Name Role Phone Haley El MD Primary Care Provider [phone] Allergies Active Allergy Reactions Criticality Noted Date [...] Office Visit [facility] [address] [id number] [place]oun [place] [address] [address] Health Maintenance Due Date Last [...] Influenza Vaccine (#1) 2025 Insurance Care Teams Clam Grader Relationship Specialty Start Date End Date Haley El MD [facility] [place] [address] PCP - General Internal Medicine 02/03/24
[2025-01-18 08:42] VITALS: BP 104/66; PULSE 85; RESP 18; TEMP 36.8; O2SAT 95; BMI 39.8
== END 2025-01-18 09:28 | disposition home or self-care (01) ==
LOC: HO.HMCC 08:30
PROVIDERS: PCP Internal Medicine; Visit Provider Internal Medicine
DX: Z98.890 Other specified postprocedural states (principal); R73.9 Hyperglycemia, unspecified; D64.9 Anemia, unspecified; Z00.00 Encounter for general adult medical examination without abnormal findings; E66.3 Overweight